=== PATIENT | female | born 1980 | race Hispanic/Latino ===

== ENCOUNTER 2018-10-15 02:15 | Emergency (ER) | payer OTHER ==
[2018-10-15] MEDS ORDERED: CODEINE 30MG/APAP 300MG TAB ONE (03:04)
[2018-10-15] MEDS ORDERED: CLINDAMYCIN HCL 150 MG CAP ONE (03:05)
--- NOTE | 2018-10-15 03:37 | ER ---
Nurse's Notes [facility] Name: Autumn Crisostomo Age: 38 yrs Sex: Female : 1980 Arrival Date: 10/15/2018 Time: 02:17 Bed 20 Private MD: Diagnosis: Jaw pain-Right lower Presentation: 10/15 02:34 Presenting complaint: Patient states: she has a broken tooth x approx 4 weeks which was bb hurting a little but now is hurting a lot and her face is swelling. Transition of care: patient was not received from another setting of care. Onset of symptoms was August 2018. Risk Assessment: Do you want to hurt yourself or someone else? Patient reports no desire to harm self or others. Initial Sepsis Screen: Does the patient meet any 2 criteria? No. Patient's initial sepsis screen is negative. Does the patient have a suspected source of infection? No. Patient's initial sepsis screen is negative. Care prior to arrival: None. 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 - Social history:: Smoking status: Patient/guardian denies using tobacco, Patient/guardian denies using alcohol, street drugs. - Ebola Screening: : No symptoms or risks identified at this time. Screenin:41 Abuse screen: Denies threats or abuse. Nutritional screening: No deficits noted. bb Tuberculosis screening: No symptoms or risk factors identified. Fall Risk None identified. Assessment: 02:41 General: Appears in no apparent distress. uncomfortable. Pain: Complains of pain in bb right jaw Pain currently is 8 out of 10 on a pain scale. Neuro: Level of Consciousness is awake, alert, obeys commands, Oriented to person, place, time, situation. Cardiovascular: No deficits noted. Respiratory: Respiratory effort is even, unlabored, Respiratory pattern is regular. GI: No deficits noted. No signs and/or symptoms were reported involving the gastrointestinal system. EENT: Reports pain in right jaw broken tooth. Musculoskeletal: Circulation, motion, and sensation intact. 03:37 Reassessment: Patient and/or family updated on plan of care and expected duration. Pain ea level reassessed. Patient is alert, oriented x 3, equal unlabored respirations, skin warm/dry/pink. Vital Signs: 02:36 BP 192 / 109; Pulse 85; Resp 16 S; Temp 97.7(O); Pulse Ox 97% on R/A; Weight 81.65 kg bb (R); Height 4 ft. 9 in. (144.78 cm) (R); Pain 8/10; 03:36 BP 194 / 103; Pulse 80; Resp 18; Pulse Ox 98% on R/A; ea 04:00 BP 189 / 100; Pulse 70; Resp 18; Pulse Ox 99% on R/A; ea 04:20 BP 167 / 99; Pulse 68; Resp 18; Pulse Ox 99% on R/A; Pain 5/10; ea 02:36 Body Mass Index 38.95 (81.65 kg, 144.78 cm) bb ED Course: 02:17 Patient arrived in ED. ag3 02:31 Chinmay Bucio PA is PHCP. cp 02:31 Chinmay Shell MD is Attending Physician. cp 02:35 Triage completed. bb 02:36 Arm band placed on Patient placed in an exam room, on a stretcher, on pulse oximetry. bb Family accompanied patient. 02:41 Patient has correct armband on for positive identification. Bed in low position. Call bb light in reach. Side rails up X 1. Adult w/ patient. Pulse ox on. NIBP on. 02:41 No provider procedures requiring assistance completed. Patient did not have IV access bb during this emergency room visit. 02:44 Sandrine Barahona, DANYELLE is Primary Nurse. ea 03:36 Abdelrahman Joel DDS is Referral Physician. cp Administered Medications: 02:59 Drug: Tylenol #3 (300 mg-30 mg) 2 tabs Route: PO; ea 03:38 Follow up: Response: No adverse reaction; Pain is unchanged, physician notified ea 02:59 Drug: Clindamycin 300 mg Route: PO; ea 03:39 Follow up: Response: No adverse reaction ea 03:38 Drug: morphine 4 mg Route: IM; Site: left deltoid; ea 04:20 Follow up: Response: No adverse reaction; Pain is decreased ea Outcome: 03:37 Discharge ordered by . noah 04:18 Condition: improved ea 04:18 Discharge instructions given to patient, Instructed on discharge instructions, follow up and referral plans. medication usage, Demonstrated understanding of instructions, follow-up care, medications. 04:22 Discharged to home ambulatory, with family. ea 04:22 Patient left the ED. ea Signatures: Melany Plascencia RN RN Chinmay Alatorre PA PA cp Antunez, Elena, RN RN ea Gomez, Alice ag3
--- NOTE | 2018-10-15 03:37 | EDPHYS ---
Physician Documentation [facility] Name: Autumn Crisostomo Age: 38 yrs Sex: Female : 1980 Arrival Date: 10/15/2018 Time: 02:17 Bed 20 Private MD: ED Physician Chinmay Shell HPI: 10/15 02:48 This 38 yrs old Female presents to ER via Ambulatory with complaints of cp Toothache. 02:48 The patient presents with broken tooth/teeth, pain, swelling. The problem is located in cp the right lower jaw. Onset: The symptoms/episode began/occurred 4 day(s) ago. Duration: The symptoms are continuous, and are steadily getting worse. Associated signs and symptoms: Pertinent positives: pain, swelling, facial, Pertinent negatives: dysphagia, fever. Severity of symptoms: in the emergency department the symptoms are unchanged, despite home interventions. 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 - Social history:: Smoking status: Patient/guardian denies using tobacco, Patient/guardian denies using alcohol, street drugs. - Ebola Screening: : No symptoms or risks identified at this time. ROS: 02:50 Constitutional: Negative for body aches, chills, fever, poor PO intake. cp 02:50 Eyes: Negative for injury, pain, redness, and discharge. cp 02:50 ENT: Positive for dental pain, right lower jaw pain, Negative for drainage from ear(s), ear pain, sinus pain, sore throat, difficulty swallowing, difficulty handling secretions. 02:50 Neck: Negative for pain with movement, pain at rest, stiffness, tenderness. 02:50 Cardiovascular: Negative for chest pain, palpitations. 02:50 Respiratory: Negative for cough, shortness of breath, wheezing. 02:50 Abdomen/GI: Negative for abdominal pain, nausea, vomiting, and diarrhea. 02:50 Skin: Negative for cellulitis, rash. 02:50 Neuro: Negative for dizziness, headache. 02:50 All other systems are negative. Exam: 02:55 Constitutional: The patient appears in no acute distress, alert, awake, non-toxic, well cp developed, well nourished. 02:55 Head/face: Noted is swelling, that is mild, of the right jaw, tenderness, that is cp mild, of the right jaw, Sinus tenderness, is not appreciated. 02:55 Eyes: Periorbital structures: appear normal, Conjunctiva: normal, no exudate, no injection, Sclera: no appreciated abnormality, Lids and lashes: appear normal, bilaterally. 02:55 ENT: External ear(s): are unremarkable, Ear canal(s): are normal, clear, TM's: bulging, is not appreciated, bilaterally, dullness, bilaterally, erythema, is not appreciated, bilaterally, Nose: is normal, Mouth: Lips: moist, Oral mucosa: pink and intact, moist, Gums: swollen, on the right lower gumline, Tongue: is normal, abscess, is not appreciated, Posterior pharynx: is normal, airway is patent, no erythema, no exudate, Dental exam: abscess, is not appreciated, dental caries, that is moderate, diffusely, fractured teeth are noted, specifically the lower right first molar (#30), pain, that is moderate, specifically in the lower right first molar (#30), Voice: is normal. 02:55 Neck: ROM/movement: is normal, is supple, without pain, no range of motions limitations, no meningismus, no nuchal rigidity, Lymph nodes: no appreciated lymphadenopathy. 02:55 Chest/axilla: Inspection: normal, Palpation: is normal, no crepitus, no tenderness. 02:55 Cardiovascular: Rate: normal, Rhythm: regular. 02:55 Respiratory: the patient does not display signs of respiratory distress, Respirations: normal, no use of accessory muscles, no retractions, no splinting, no tachypnea, labored breathing, is not present, Breath sounds: are clear throughout, no decreased breath sounds, no stridor, no wheezing. 02:55 Abdomen/GI: Exam negative for discomfort, distension, guarding, Inspection: abdomen appears normal. Vital Signs: 02:36 BP 192 / 109; Pulse 85; Resp 16 S; Temp 97.7(O); Pulse Ox 97% on R/A; Weight 81.65 kg bb (R); Height 4 ft. 9 in. (144.78 cm) (R); Pain 8/10; 03:36 BP 194 / 103; Pulse 80; Resp 18; Pulse Ox 98% on R/A; ea 04:00 BP 189 / 100; Pulse 70; Resp 18; Pulse Ox 99% on R/A; ea 04:20 BP 167 / 99; Pulse 68; Resp 18; Pulse Ox 99% on R/A; Pain 5/10; ea 02:36 Body Mass Index 38.95 (81.65 kg, 144.78 cm) bb MDM: 02:31 Patient medically screened. cp 02:50 Differential diagnosis: dental caries, dental abscess, pericoronitis. cp 03:35 Data reviewed: vital signs, nurses notes. cp 03:35 Counseling: I had a detailed discussion with the patient and/or guardian regarding: the cp historical points, exam findings, and any diagnostic results supporting the discharge/admit diagnosis, the presence of at least one elevated blood pressure reading (>120/80) during this emergency department visit, the need for outpatient follow up, a dentist, maxillary/facial surgeon, to return to the emergency department if symptoms worsen or persist or if there are any questions or concerns that arise at home. Response to treatment: the patient's symptoms have markedly improved after treatment, and as a result, I will discharge patient. 10/15 02:56 Order name: Vital Signs: recheck blood pressure; Complete Time: 03:38 cp Administered Medications: 02:59 Drug: Tylenol #3 (300 mg-30 mg) 2 tabs Route: PO; ea 03:38 Follow up: Response: No adverse reaction; Pain is unchanged, physician notified ea 02:59 Drug: Clindamycin 300 mg Route: PO; ea 03:39 Follow up: Response: No adverse reaction ea 03:38 Drug: morphine 4 mg Route: IM; Site: left deltoid; ea 04:20 Follow up: Response: No adverse reaction; Pain is decreased ea Disposition: 04:30 Chart complete. cp Disposition: 10/15/18 03:37 Discharged to Home. Impression: Jaw pain - Right lower. - Condition is Stable. - Discharge Instructions: Dental Pain. - Prescriptions for Clindamycin HCl 300 mg Oral Capsule - take 1 capsule by ORAL route every 6 hours for 10 days; 40 capsule. Tylenol- Codeine #3 300-30 mg Oral Tablet - take 2 tablets by ORAL route every 6 hours As needed; 15 tablet. - Medication Reconciliation Form, Thank You Letter, Antibiotic Education, Prescription Opioid Use form. - Follow up: Abdelrahman Joel DDS; When: 2 - 3 days; Reason: Recheck today's complaints. - Problem is new. - Symptoms have improved. Addendum: 10/25/2018 11:14 Co-signature as Attending Physician, Chinmay Shell MD I agree with the assessment and c santizo plan of care. Signatures: Chinmay Shell MD MD cha Ballard, Brenda, RN RN bb Chinmay Bucio PA PA cp Sandrine Barahona, RN RN ea Corrections: (The following items were deleted from the chart) 10/15 04:22 03:37 10/15/2018 03:37 Discharged to Home. Impression: Jaw pain - Right lower. ea Condition is Stable. Prescriptions for Clindamycin HCl 300 mg Oral Capsule - take 1 capsule by ORAL route every 6 hours for 10 days; 40 capsule, Tylenol-Codeine #3 300-30 mg Oral Tablet - take 2 tablets by ORAL route every 6 hours As needed; 15 tablet. and Forms are Medication Reconciliation Form, Thank You Letter, Antibiotic Education, Prescription Opioid Use. Follow up: Abdelrahman Joel; When: 2 - 3 days; Reason: Recheck today's complaints. Problem is new. Symptoms have improved. cp
[2018-10-15] MEDS ORDERED: MORPHINE 4 MG/ML SYR ONE (03:42)
[2018-10-15 05:08] VITALS: TEMP 97.7
[2018-10-15 05:11] VITALS: O2SAT 99
[2018-10-15 05:13] VITALS: BP 167/99
== END 2018-10-15 04:22 | disposition home or self-care (01) ==
LOC: ER 02:15
DX: K02.9 Dental caries, unspecified (principal); R68.84 Jaw pain; S02.5XXA Fracture of tooth (traumatic), initial encounter for closed fracture; X58.XXXA Exposure to other specified factors, initial encounter; I10 Essential (primary) hypertension; Z79.899 Other long term (current) drug therapy
CPT/HCPCS: 96372; 99283

== ENCOUNTER 2019-05-30 18:15 | Emergency (ER) | payer OTHER, SELFPAY ==
[2019-05-30] MEDS ORDERED: ONDANSETRON 4 MG/2 ML VIAL ONE (19:21)
[2019-05-30] MEDS ORDERED: MORPHINE 4 MG/ML SYR ONE (19:21)
--- NOTE | 2019-05-30 19:45 | RAD REPORT ---
EXAM DESCRIPTION: CT - Head Brain Wo Cont - 05/30/2019 7:30 pm CLINICAL HISTORY: Headache, left-sided facial pain COMPARISON: CT head February 2013 TECHNIQUE: Axial 5 mm thick images of the head were obtained without IV contrast. All CT scans are performed using dose optimization technique as appropriate and may include automated exposure control or mA/KV adjustment according to patient size. FINDINGS: No intracranial hemorrhage, mass, edema or shift of mid-line structures. No acute infarcti on changes seen. No abnormal extra-axial fluid collections. Ventricles are normal. Mastoid air cells and visualized portions of the paranasal sinuses are clear. No acute bony findings. IMPRESSION: Negative non-contrast CT head examination. No significant change from comparison.
[2019-05-30 19:52] LABS: Absolute Lymphocytes (CBC) 1.5 K/uL (0.7-4.9); Basophils % 0.3 % (0-1.3); Hematocrit 38.7 % (36.0-45.0); Lymphocytes % 15.9 % (15.3-44.8); MPV 8.1 fL (7.6-11.3); RBC Red Blood Cell Count 4.77 M/uL (3.86-4.86)
[2019-05-30 19:57] LABS: Protime INR 1.04
[2019-05-30 19:59] LABS: BUN Blood Urea Nitrogen 11 mg/dL (7-18); Bicarbonate 28 mmol/L (21-32); Glucose Level 131 mg/dL (74-106); Potassium 3.2 mmol/L (3.5-5.1); Sodium Level 132 mmol/L (136-145)
[2019-05-30] MEDS ORDERED: cloNIDine HCl 0.1 MG TAB ONE (20:00)
--- NOTE | 2019-05-30 20:38 | RAD REPORT ---
EXAM DESCRIPTION: CT - Head angio - 05/30/2019 8:27 pm CLINICAL HISTORY: Headache, hypertension TECHNIQUE: During dynamic enhancement using nonionic IV contrast, axial 1 millimeter thick images of the head were obtained. Sagittal and axial reconstruction images were generated using maximum intens ity projection protocol and reviewed. All CT scans are performed using dose optimization technique as appropriate and may include automated exposure control or mA/KV adjustment according to patient size. FINDINGS: No aneurysm or vascular malformation identified. Major venous sinuses are patent. No stenosis, named branch occlusion, vasculitis or other significant vascular finding identifiable. IMPRESSION: Negative CT angio head examination.
--- NOTE | 2019-05-30 20:39 | RAD REPORT ---
EXAM DESCRIPTION: CT - Neck Angio - 05/30/2019 8:22 pm CLINICAL HISTORY: Headache, neck and jaw pain, hypertension TECHNIQUE: During dynamic enhancement using nonionic IV contrast, axial 2 mm thick images of the nec k were obtained. Sagittal and axial reconstruction images were generated using maximum intensity proj ection protocol and reviewed. All CT scans are performed using dose optimization technique as appropriate and may include automated exposure control or mA/KV adjustment according to patient size. FINDINGS: No aneurysm or vascular malformation identified. No carotid or vertebral dissection. No aortic arch or great vessel origin abnormality seen. Vertebral artery origins unremarkable as well . No stenosis, vasculitis or other significant carotid artery finding. No focal abnormality of either vertebral artery. Basilar artery is normal. IMPRESSION: Negative CT angio neck examination.
--- NOTE | 2019-05-30 21:24 | ER ---
Nurse's Notes [facility] Name: Autumn Crisostomo Age: 39 yrs Sex: Female : 1980 Arrival Date: 05/30/2019 Time: 18:20 Bed 15 Private MD: Diagnosis: Atypical facial pain Presentation: 05/30 18:24 Presenting complaint: Patient states: around 1 pm today, i started having pain on my L hj ear and L side of the face, reports tooth extraction on the L upper area; reports N/V;denies weakness, no facial droop;. Transition of care: patient was not received from another setting of care. Onset of symptoms. Risk Assessment: Do you want to hurt yourself or someone else? Patient reports no desire to harm self or others. Initial Sepsis Screen: Does the patient meet any 2 criteria? No. Patient's initial sepsis screen is negative. Does the patient have a suspected source of infection? No. Patient's initial sepsis screen is negative. Care prior to arrival: None. 18:24 Method Of Arrival: Ambulatory 18:31 Acuity: NAHED 2 hj Historical: - Allergies: 18:26 No Known Allergies; hj - PMHx: 18:26 Hypertension; hj - PSHx: 18:26 ; hj - Family history:: not pertinent. - Hospitalizations: : No recent hospitalization is reported. Screenin:15 Abuse screen: Denies threats or abuse. Denies injuries from another. Nutritional aa1 screening: No deficits noted. Tuberculosis screening: No symptoms or risk factors identified. Fall Risk None identified. Assessment: 19:15 General: Appears in no apparent distress. uncomfortable, Behavior is calm, cooperative, aa1 appropriate for age. Pain: Complains of pain in left side of head Pain currently is 10 out of 10 on a pain scale. Is continuous. Neuro: Level of Consciousness is awake, alert, obeys commands, Oriented to person, place, time, situation, Moves all extremities. Full function Gait is steady, Speech is normal, Pupils are PERRLA, Reports headache. Cardiovascular: Heart tones S1 S2 present Rhythm is regular. Respiratory: Airway is patent Respiratory effort is even, unlabored, Respiratory pattern is regular, symmetrical. GI: Abdomen is non-distended, Reports nausea, vomiting. : No signs and/or symptoms were reported regarding the genitourinary system. EENT: No signs and/or symptoms were reported regarding the EENT system. Derm: Skin is intact, is healthy with good turgor, Skin is pink, warm \T\ dry. Musculoskeletal: Circulation, motion, and sensation intact. Capillary refill < 3 seconds. 20:35 Reassessment: Patient appears in no apparent distress at this time. Patient and/or aa1 family updated on plan of care and expected duration. Pain level reassessed. Patient is alert, oriented x 3, equal unlabored respirations, skin warm/dry/pink. Pt back from CT at this time; awaiting results Patient states symptoms have improved. 21:20 Reassessment: Patient appears in no apparent distress at this time. Patient and/or aa1 family updated on plan of care and expected duration. Pain level reassessed. Patient is alert, oriented x 3, equal unlabored respirations, skin warm/dry/pink. Dr. Diane at bedside for pt reassessment. 22:06 Reassessment: Patient appears in no apparent distress at this time. Patient is alert, aa1 oriented x 3, equal unlabored respirations, skin warm/dry/pink. Discussed d/c \T\ f/u instructions with pt \T\ family; denies questions or concerns at this time. Ambulates to lobby with steady gait. Vital Signs: 18:26 BP 210 / 125; Pulse 91; Resp 18; Temp 98.0(O); Pulse Ox 100% on R/A; Weight 81.65 kg; Height 4 ft. 9 in. (144.78 cm); Pain 10/10; 19:44 BP 179 / 111; Pulse 84; Resp 18; Pulse Ox 98% on R/A; aa1 20:35 BP 166 / 110; Pulse 79; Resp 18; Pulse Ox 99% on R/A; Pain 6/10; aa1 21:20 BP 154 / 106; Pulse 77; Resp 18; Pulse Ox 99% on R/A; Pain 6/10; aa1 22:06 BP 141 / 102; Pulse 75; Resp 16; Temp 98.3; Pulse Ox 100% on R/A; Pain 7/10; aa1 18:26 Body Mass Index 38.95 (81.65 kg, 144.78 cm) ED Course: 18:20 Patient arrived in ED. as 18:26 Triage completed. hj 18:26 Arm band placed on left wrist. hj 18:55 Papo Diane MD is Attending Physician. rn 19:13 Teresita Patel RN is Primary Nurse. aa1 19:15 Patient has correct armband on for positive identification. Placed in gown. Bed in low aa1 position. Call light in reach. Pulse ox on. NIBP on. Warm blanket given. 19:25 Initial lab(s) drawn, by me, sent to lab. Inserted saline lock: 20 gauge in right aa1 antecubital area, using aseptic technique. Blood collected. 19:35 CT Head Brain wo Cont In Process Unspecified. EDMS 19:51 Radiology exam delayed due to lab results not completed at this time. (BUN/Creatinine). nj 19:58 Radiology exam delayed due to lab results not completed at this time. (BUN/Creatinine). vm2 20:22 CT Neck Angio In Process Unspecified. EDMS 20:31 CT Head Angio In Process Unspecified. EDMS 22:06 No provider procedures requiring assistance completed. IV discontinued, intact, aa1 bleeding controlled, No redness/swelling at site. Pressure dressing applied. Administered Medications: 19:25 Drug: Zofran 4 mg Route: IVP; Site: right antecubital; aa1 20:25 Follow up: Response: No adverse reaction; Nausea is decreased aa1 19:27 Drug: morphine 4 mg Route: IVP; Site: right antecubital; aa1 20:27 Follow up: Response: No adverse reaction; Pain is decreased; RASS: Alert and Calm (0) aa1 20:00 Drug: cloNIDine 0.1 mg Route: PO; aa1 21:21 Follow up: Response: No adverse reaction; Blood pressure is lowered aa1 21:36 Drug: Decadron - Dexamethasone 10 mg Route: IVP; Site: right antecubital; aa1 22:09 Follow up: Response: No adverse reaction; Medication administered at discharge. aa1 21:36 Drug: [place] 10 mg-325 mg 1 tabs Route: PO; aa1 22:09 Follow up: Response: No adverse reaction; Medication administered at discharge.; RASS: aa1 Alert and Calm (0) Outcome: 21:24 Discharge ordered by . rn 22:06 Discharged to home ambulatory, with family. aa1 22:06 Condition: good 22:06 Discharge instructions given to patient, family, Instructed on discharge instructions, follow up and referral plans. medication usage, Demonstrated understanding of instructions, follow-up care, medications, Prescriptions given X 2. 22:13 Patient left the ED. aa1 Signatures: Dispatcher [employer] EDMS Genoveva Elliott RN RN aj1 Teresita Patel RN RN aa1 Lima King Roman, MD MD rn Joaquin, Henry, RN RN hj Jordan, Nathan nj McGuire, [facility] Corrections: (The following items were deleted from the chart) 18:29 18:24 Acuity: NAHED 4 [facility] 18:29 18:26 Pulse 91bpm; Resp 18bpm; Pulse Ox 100% RA; Temp 98.0F Oral; 81.65 kg; Height 4 hj ft. 9 in.; BMI: 38.9; Pain 10/10; hj 18:30 18:24 Acuity: NAHED 3 [facility] 18:32 18:31 Acuity: NAHED 2 [facility]
--- NOTE | 2019-05-30 21:24 | EDPHYS ---
Physician Documentation [facility] Name: Autumn Crisostomo Age: 39 yrs Sex: Female : 1980 Arrival Date: 05/30/2019 Time: 18:20 Bed 15 Private MD: ED Physician Papo Diane HPI: 05/30 19:27 This 39 yrs old Female presents to ER via Ambulatory with complaints of rn Vomiting, Ear Pain. 19:27 This 39 yrs old Female presents to ER via Ambulatory with complaints of facial rn pain. 19:27 The patient presents to the emergency department with nausea, vomiting. rn 19:27 The patient or guardian complains of pain. The symptoms are located left jaw. rn 19:28 Onset: The symptoms/episode began/occurred 6 hour(s) ago. Associated signs and rn symptoms: Pertinent positives: headache, Pertinent negatives: fever, bladder incontinence, bowel incontinence, numbness, tingling, weakness. The pain does not radiate. Modifying factors: The symptoms are alleviated by nothing. the symptoms are aggravated by movement, pressure. Severity of symptoms: At their worst the symptoms were moderate, in the emergency department the symptoms are unchanged. The patient has not experienced similar symptoms in the past. Reports left jaw/face pain and headache, began acutely around 6 hours ago, no trauma, no fever, had tooth extracted recently, no swelling, no sob or difficulty swallowing. Denies chest pain. NO focal neurological symptoms.. Historical: - Allergies: 18:26 No Known Allergies; hj - PMHx: 18:26 Hypertension; hj - PSHx: 18:26 ; hj - Family history:: not pertinent. - Hospitalizations: : No recent hospitalization is reported. ROS: 19:28 Constitutional: Negative for fever, chills, and weight loss, Eyes: Negative for injury, rn pain, redness, and discharge, ENT: Negative for injury, and discharge, Neck: + left neck and facial pain Cardiovascular: Negative for chest pain, palpitations, and edema, Respiratory: Negative for shortness of breath, cough, wheezing, and pleuritic chest pain, Abdomen/GI: Negative for abdominal pain, diarrhea, and constipation, MS/Extremity: Negative for injury and deformity, Skin: Negative for injury, rash, and discoloration, Neuro: Negative for numbness, tingling, and seizure. Exam: 19:28 Constitutional: This is a well developed, well nourished patient who is awake, alert, rn tearful, sitting upright Head/Face: Normocephalic, atraumatic. Eyes: Pupils equal round and reactive to light, extra-ocular motions intact. Lids and lashes normal. Conjunctiva and sclera are non-icteric and not injected. Cornea within normal limits. Periorbital areas with no swelling, redness, or edema. ENT: Nares patent. No nasal discharge, no septal abnormalities noted. Tympanic membranes are normal and external auditory canals are clear. Oropharynx with no redness, swelling, or masses, exudates, or evidence of obstruction, uvula midline. Mucous membranes moist. Neck: Trachea midline, no thyromegaly or masses palpated, and no cervical lymphadenopathy. Supple, full range of motion without nuchal rigidity, or vertebral point tenderness. No Meningismus. Cardiovascular: Regular rate and rhythm. No pulse deficits. Respiratory: No increased work of breathing, no retractions or nasal flaring. Abdomen/GI: soft, non-tender Skin: Warm, dry with normal turgor. Normal color with no rashes, no lesions, and no evidence of cellulitis. MS/ Extremity: Pulses equal, no cyanosis. Neurovascular intact. Full, normal range of motion. Equal circumference. Neuro: Awake and alert, GCS 15, oriented to person, place, time, and situation. Cranial nerves II-XII grossly intact. Motor strength 5/5 in all extremities. Sensory grossly intact. Cerebellar exam normal. 20:35 ECG was reviewed by the Attending Physician. rn Vital Signs: 18:26 BP 210 / 125; Pulse 91; Resp 18; Temp 98.0(O); Pulse Ox 100% on R/A; Weight 81.65 kg; hj Height 4 ft. 9 in. (144.78 cm); Pain 10/10; 19:44 BP 179 / 111; Pulse 84; Resp 18; Pulse Ox 98% on R/A; aa1 20:35 BP 166 / 110; Pulse 79; Resp 18; Pulse Ox 99% on R/A; Pain 6/10; aa1 21:20 BP 154 / 106; Pulse 77; Resp 18; Pulse Ox 99% on R/A; Pain 6/10; aa1 22:06 BP 141 / 102; Pulse 75; Resp 16; Temp 98.3; Pulse Ox 100% on R/A; Pain 7/10; aa1 18:26 Body Mass Index 38.95 (81.65 kg, 144.78 cm) hj MDM: 18:55 Patient medically screened. rn 21:21 Differential diagnosis: cervical strain, post extraction infection, LAD, abscess, nerve rn inflammation, pinched nerve. Data reviewed: vital signs, nurses notes, lab test result(s), EKG, radiologic studies, CT scan, and as a result, I will discharge patient. Counseling: I had a detailed discussion with the patient and/or guardian regarding: the historical points, exam findings, and any diagnostic results supporting the discharge/admit diagnosis, lab results, radiology results, the need for outpatient follow up, to return to the emergency department if symptoms worsen or persist or if there are any questions or concerns that arise at home. Response to treatment: the patient's symptoms have markedly improved after treatment, and as a result, I will discharge patient. Special discussion: I discussed with the patient/guardian in detail that at this point there is no indication for admission to the hospital. It is understood, however, that if the symptoms persist or worsen the patient needs to return immediately for re-evaluation. Based on the history and exam findings, there is no indication for further emergent testing or inpatient evaluation. I discussed with the patient/guardian the need to see the primary care provider for further evaluation of the symptoms. ED course: Patient improved, negative w/u including ct head/neck, neg ECG and trop, no palpable masses. states has had before once, and worked up at [facility], same side of face, told nerve problem. Will dc home with pain meds and steroids. NO vision changes, no signs of temporal arteritis. . 05/30 19:09 Order name: CBC with Diff; Complete Time: 20:42 rn 05/30 19:09 Order name: Basic Metabolic Panel; Complete Time: 20:42 rn 05/30 19:09 Order name: Protime (+inr); Complete Time: 20:42 rn 05/30 19:09 Order name: Ptt, Activated; Complete Time: 20:42 rn 05/30 19:09 Order name: Strep; Complete Time: 20:42 rn 05/30 19:09 Order name: [place] Screen Profile; Complete Time: 20:42 rn 05/30 19:09 Order name: CT Neck Angio; Complete Time: 20:42 rn 05/30 19:09 Order name: CT Head Brain wo Cont; Complete Time: 19:51 rn 05/30 19:09 Order name: CT Head Angio; Complete Time: 20:42 rn 05/30 19:28 Order name: Troponin (emerg Dept Use Only); Complete Time: 20:42 rn 05/30 20:28 Order name: Throat Culture EDMS 05/30 19:09 Order name: IV Start; Complete Time: 19:41 rn 05/30 19:28 Order name: EKG; Complete Time: 19:33 rn 08 19:28 Order name: EKG - Nurse/Tech; Complete Time: 20:32 rn EC:35 Rate is 75 beats/min. Rhythm is regular. QRS [place] is Normal. [place] interval is normal. QRS rn interval is normal. QT interval is normal. No Q waves. No ST changes noted. Clinical impression: LVH. Interpreted by me. Reviewed by me. Administered Medications: 19:25 Drug: Zofran 4 mg Route: IVP; Site: right antecubital; aa1 20:25 Follow up: Response: No adverse reaction; Nausea is decreased aa1 19:27 Drug: morphine 4 mg Route: IVP; Site: right antecubital; aa1 20:27 Follow up: Response: No adverse reaction; Pain is decreased; RASS: Alert and Calm (0) aa1 20:00 Drug: cloNIDine 0.1 mg Route: PO; aa1 21:21 Follow up: Response: No adverse reaction; Blood pressure is lowered aa1 21:36 Drug: Decadron - Dexamethasone 10 mg Route: IVP; Site: right antecubital; aa1 22:09 Follow up: Response: No adverse reaction; Medication administered at discharge. aa1 21:36 Drug: [place] 10 mg-325 mg 1 tabs Route: PO; aa1 22:09 Follow up: Response: No adverse reaction; Medication administered at discharge.; RASS: aa1 Alert and Calm (0) Disposition: 05/30/19 21:24 Discharged to Home. Impression: Atypical facial pain. - Condition is Stable. - Discharge Instructions: Pain Without a Known Cause. - Prescriptions for Tylenol- Codeine #3 300-30 mg Oral Tablet - take 1 tablet by ORAL route every 6 hours As needed; 20 tablet. Medrol ([place]) 4 mg Oral Tablets, Dose Pack - take 1 tablet by ORAL route as directed - follow package instructions; 1 packet. - Medication Reconciliation Form, Thank You Letter, Antibiotic Education, Prescription Opioid Use form. - Follow up: Private Physician; When: As needed; Reason: Recheck today's complaints, Re-evaluation by your physician. - Problem is new. - Symptoms have improved. Signatures: Dispatcher [employer] EDMS Teresita Patel RN RN aa1 Papo Diane MD MD rn Joaquin, Henry RN RN hj Corrections: (The following items were deleted from the chart) 21:23 21:21 ED course: Patient improved, negative w/u including ct head/neck, neg ECG and rn trop, no palpable masses. states has had before once, and worked up at [facility], same side of face, told nerve problem. Will dc home with pain meds and steroids. . rn 22:13 21:24 05/30/2019 21:24 Discharged to Home. Impression: Atypical facial pain. Condition aa1 is Stable. Forms are Medication Reconciliation Form, Thank You Letter, Antibiotic Education, Prescription Opioid Use. Follow up: Private Physician; When: As needed; Reason: Recheck today's complaints, Re-evaluation by your physician. Problem is new. Symptoms have improved. rn
[2019-05-30] MEDS ORDERED: dexAMETHasone 10 MG/ML VIAL ONE (21:34)
[2019-05-30] MEDS ORDERED: HYDROCODONE/APAP 10/325 TAB ONE (21:35)
[2019-05-30 22:33] VITALS: BP 141/102; TEMP 98.3; O2SAT 100
--- NOTE | 2019-05-31 07:10 | EKG ---
Test Date: 2019-05-30 Test Time: 20:07:02 [place] Consultant: JUSTIN MEASUREMENT RESULTS: Intervals: Rate: 75 WV: 144 QRSD: 78 QT: 408 QTc: 455 [place]: P: 35 WV: 144 QRS: 0 T: 7 INTERPRETIVE STATEMENTS: Normal sinus rhythm Voltage criteria for left ventricular hypertrophy Abnormal ECG Compared to ECG 04/26/2013 23:07:25 Left ventricular hypertrophy now present Electronically Signed On 05-31-19 07:10:07 CDT by Bernard Antonio
== END 2019-05-30 22:13 | disposition home or self-care (01) ==
LOC: ER 18:15
DX: G50.1 Atypical facial pain (principal); I10 Essential (primary) hypertension
CPT/HCPCS: 36415; 70450; 70496; 70498; 80048; 84484; 85025; 85610; 85730; 86308; 87070; 87081; 93005; 96374; 96375; 99284; J1100; J2405; Q9967

== ENCOUNTER 2024-02-21 09:39 | Emergency (ER) | payer SELFPAY ==
[2024-02-21] MEDS ORDERED: LIDOCAINE VISCOUS 2% 10ML ORAL SOLN ONE (10:23)
[2024-02-21] MEDS ORDERED: LIDOCAINE HCL JELLY 2% 6 ML SYRINGE TOP ONE (10:24)
[2024-02-21] MEDS ORDERED: ONDANSETRON 4 MG (ODT) TAB ONE (11:49)
--- NOTE | 2024-02-21 12:02 | ER ---
Nurse's Notes [facility] Name: Autumn Crisostomo Age: 43 yrs Sex: Female : 1980 Arrival Date: 02/21/2024 Time: 09:39 Bed 15 Private MD: Diagnosis: Foreign body in right ear-insect removed;Nausea with vomiting, unspecified;Essential (primary) hypertension Presentation: 02/20 09:48 Chief complaint: Patient states: was in the kitchen, felt something hit right ear , iw feels something moving inside her ear , happened about 30 min ago. Coronavirus screen: At this time, the client does not indicate any symptoms associated with coronavirus-19. Ebola Screen: Patient negative for fever greater than or equal to 101.5 degrees Fahrenheit, and additional compatible Ebola Virus Disease symptoms Patient denies exposure to infectious person. Patient denies travel to an Ebola-affected area in the 21 days before illness onset. No symptoms or risks identified at this time. Initial Sepsis Screen: Does the patient meet any 2 criteria? No. Patient's initial sepsis screen is negative. Does the patient have a suspected source of infection?. Risk Assessment: Do you want to hurt yourself or someone else? Patient reports no desire to harm self or others. Onset of symptoms was February 21, 2024. 09:48 Method Of Arrival: Ambulatory iw 09:48 Acuity: NAHED 4 iw Triage Assessment: 09:54 General: Appears in no apparent distress. comfortable, Behavior is calm, cooperative, ld1 appropriate for age. Pain: Denies pain. EENT: Ear canal w/ foreign body noted from right ear. Neuro: Level of Consciousness is awake, alert, obeys commands, Oriented to person, place, time, situation. Cardiovascular: Capillary refill < 3 seconds Patient's skin is warm and dry. Respiratory: Airway is patent Respiratory effort is even, unlabored. GI: Abdomen is flat, non-distended. : No signs and/or symptoms were reported regarding the genitourinary system. Derm: No signs and/or symptoms reported regarding the dermatologic system. Musculoskeletal: No signs and/or symptoms reported regarding the musculoskeletal system. Historical: - Allergies: 09:49 No Known Allergies; iw - PMHx: 09:49 Hypertension; iw - PSHx: 09:49 section; iw - Immunization history:: Adult Immunizations. - Infectious Disease History:: Denies. - Social history:: Smoking status: Patient denies any tobacco usage or history of. Screenin:56 [facility] ED Fall Risk Assessment (Adult) History of falling in the last 3 months, ld1 including since admission No falls in past 3 months (0 pts). Abuse screen: Denies threats or abuse. Denies injuries from another. Nutritional screening: No deficits noted. Tuberculosis screening: No symptoms or risk factors identified. Assessment: 09:56 Reassessment: See triage assessment. ld1 Vital Signs: 09:48 BP 192 / 115; Pulse 98; Resp 16; Temp 98.4; Pulse Ox 99% on R/A; Weight 86.18 kg; iw Height 4 ft. 9 in. ; 12:19 BP 165 / 110; Pulse 84; Resp 18; Pulse Ox 98% ; cp4 09:48 Body Mass Index 41.12 (86.18 kg, 144.78 cm) ED Course: 09:41 Patient arrived in ED. rg4 09:43 Chinmay Shell MD is Attending Physician. [facility] 09:49 Triage completed. iw 09:49 Arm band placed on. iw 09:54 Lexy Frank, DANYELLE is Primary Nurse. ld1 09:56 Patient has correct armband on for positive identification. Placed in gown. Bed in low ld1 position. Call light in reach. Side rails up X2. athletic monitor on. Pulse ox on. NIBP on. Door closed. Noise minimized. Warm blanket given. :56 No provider procedures requiring assistance completed. ld1 12:01 Sherlyn Mcfadden MD is Referral Physician. [facility] 12:18 Provided Education on: foreign body in ear. cp4 12:18 Patient did not have IV access during this emergency room visit. cp4 Administered Medications: 10:45 Drug: Viscous Lidocaine Mucous Membrane Liquid (4 %) 5 ml Mucous Membrane once; to cp4 bedside to right ear Route: Mucous Membrane; 12:19 Follow up: Response: No adverse reaction cp4 11:51 Drug: Ondansetron PO 8 mg PO once Route: PO; cp4 12:19 Follow up: Response: No adverse reaction cp4 Medication: 09:56 VIS not applicable for this client. ld1 Outcome: 12:01 Discharge ordered by . [facility] 12:18 Discharged to home ambulatory, cp4 12:18 Condition: stable 12:18 Discharge instructions given to patient, Instructed on discharge instructions, follow up and referral plans. medication usage, Demonstrated understanding of instructions, follow-up care, medications, Prescriptions given X 1, 12:21 Patient left the ED. cp4 Signatures: Chinmay Shell MD MD cha Williams, Irene, RN Alem Felix rg4 Lexy Frank RN RN ldKayy Morin cp4
--- NOTE | 2024-02-21 12:02 | EDPHYS ---
Physician Documentation [facility] Name: Autumn Crisostomo Age: 43 yrs Sex: Female : 1980 Arrival Date: 02/21/2024 Time: 09:39 Bed 15 Private MD: SHALINI Physician Chinmay Shell HPI: 02/20 10:20 This 43 yrs old Female presents to ER via Ambulatory with complaints of sachi Foreign Body In Ear. 10:20 The patient presents with a foreign body sensation, presumably from an insect. The sachi complaints affect the right ear. Onset: The symptoms/episode began/occurred just prior to arrival. Modifying factors: The symptoms are alleviated by nothing, the symptoms are aggravated by nothing. Associated signs and symptoms: The patient has no apparent associated signs or symptoms. Severity of symptoms: At their worst the symptoms were mild moderate. The patient has not experienced similar symptoms in the past. Historical: - Allergies: 09:49 No Known Allergies; iw - PMHx: 09:49 Hypertension; iw - PSHx: 09:49 section; iw - Immunization history:: Adult Immunizations. - Infectious Disease History:: Denies. - Social history:: Smoking status: Patient denies any tobacco usage or history of. ROS: 10:21 Constitutional: Negative for fever, chills, and weight loss, Eyes: Negative for injury, sachi pain, redness, and discharge, Neck: Negative for injury, pain, and swelling, Cardiovascular: Negative for chest pain, palpitations, and edema, Respiratory: Negative for shortness of breath, cough, wheezing, and pleuritic chest pain, Abdomen/GI: Negative for abdominal pain, nausea, vomiting, diarrhea, and constipation, Back: Negative for injury and pain, : Negative for injury, bleeding, discharge, and swelling, MS/Extremity: Negative for injury and deformity, Skin: Negative for injury, rash, and discoloration, Neuro: Negative for headache, weakness, numbness, tingling, and seizure, Psych: Negative for depression, anxiety, suicide ideation, homicidal ideation, and hallucinations, Allergy/Immunology: Negative for hives, rash, and allergies, Endocrine: Negative for neck swelling, polydipsia, polyuria, polyphagia, and marked weight changes, Hematologic/Lymphatic: Negative for swollen nodes, abnormal bleeding, and unusual bruising, 10:21 ENT: Positive for foreign body sensation, Exam: 10:21 Constitutional: This is a well developed, well nourished patient who is awake, alert, sachi and in no acute distress. Head/Face: Normocephalic, atraumatic. Eyes: Pupils equal round and reactive to light, extra-ocular motions intact. Lids and lashes normal. Conjunctiva and sclera are non-icteric and not injected. Cornea within normal limits. Periorbital areas with no swelling, redness, or edema. Neck: Trachea midline, no thyromegaly or masses palpated, and no cervical lymphadenopathy. Supple, full range of motion without nuchal rigidity, or vertebral point tenderness. No Meningismus. Chest/axilla: Normal chest wall appearance and motion. Nontender with no deformity. No lesions are appreciated. Cardiovascular: Regular rate and rhythm with a normal S1 and S2. No gallops, murmurs, or rubs. Normal PMI, no JVD. No pulse deficits. Respiratory: Lungs have equal breath sounds bilaterally, clear to auscultation and percussion. No rales, rhonchi or wheezes noted. No increased work of breathing, no retractions or nasal flaring. Abdomen/GI: Soft, non-tender, with normal bowel sounds. No distension or tympany. No guarding or rebound. No evidence of tenderness throughout. Back: No spinal tenderness. No costovertebral tenderness. Full range of motion. Skin: Warm, dry with normal turgor. Normal color with no rashes, no lesions, and no evidence of cellulitis. MS/ Extremity: Pulses equal, no cyanosis. Neurovascular intact. Full, normal range of motion. Neuro: Awake and alert, GCS 15, oriented to person, place, time, and situation. Cranial nerves II-XII grossly intact. Motor strength 5/5 in all extremities. Sensory grossly intact. Cerebellar exam normal. Normal gait. Psych: Awake, alert, with orientation to person, place and time. Behavior, mood, and affect are within normal limits. 10:21 ENT: Ear canal(s): foreign body, an insect, in the right external ear canal, Vital Signs: 09:48 BP 192 / 115; Pulse 98; Resp 16; Temp 98.4; Pulse Ox 99% on R/A; Weight 86.18 kg; iw Height 4 ft. 9 in. ; 12:19 BP 165 / 110; Pulse 84; Resp 18; Pulse Ox 98% ; cp4 09:48 Body Mass Index 41.12 (86.18 kg, 144.78 cm) iw Procedures: 10:30 Foreign Body Removal: an insect, from the right ear canal, by lidocaine lavage, normal sachi saline irrigation, Dressing: none, The patient tolerated the removal well. MDM: 09:43 Patient medically screened. sachi 10:23 Differential diagnosis: foreign body. Data reviewed: vital signs, nurses notes. sachi Consideration of Admission/Observation Escalation of care including admission/observation considered. I considered the following discharge prescriptions or medication management in the emergency department Medications were administered in the Emergency Department. See MAR. Historians other than the Patient: Family Member: family, well informed. Care significantly affected by the following chronic conditions: Hypertension, Obesity. 02/20 10:11 Order name: [facility]. Order: irrigate right ear; Complete Time: 11:39 sachi Administered Medications: 10:45 Drug: Viscous Lidocaine Mucous Membrane Liquid (4 %) 5 ml Mucous Membrane once; to cp4 bedside to right ear Route: Mucous Membrane; 12:19 Follow up: Response: No adverse reaction cp4 11:51 Drug: Ondansetron PO 8 mg PO once Route: PO; cp4 12:19 Follow up: Response: No adverse reaction cp4 Disposition Summary: 02/21/24 12:01 Discharge Ordered Notes: Location: Home sachi Problem: new sachi Symptoms: have improved sachi Condition: Stable sachi Diagnosis - Nausea with vomiting, unspecified sachi - Essential (primary) hypertension sachi - Foreign body in right ear - insect removed(02/21/24 12:05) sachi Followup: sachi - With: Private Physician - When: 2 - 3 days - Reason: Recheck today's complaints, Continuance of care, Re-evaluation by your physician Followup: sachi - With: Sherlyn Mcfadden MD - When: 2 - 3 days - Reason: Recheck today's complaints, Continuance of care, Re-evaluation by your physician Discharge Instructions: - Discharge Summary Sheet sachi - Ear Foreign Body sachi - Hypertension, Adult sachi - Nausea, Adult sachi - Nausea and Vomiting, Adult, [id number] sachi - Hypertension, Adult, [id number] sachi - Ear Foreign Body, [id number] sachi Forms: - Medication Reconciliation Form sachi - Antibiotic Education sachi - Prescription Opioid Use sachi - Patient Portal Instructions sachi - Leadership Thank You Letter sachi Prescriptions: - ondansetron 4 mg Oral Tablet,disintegrating - take 1 tablet ORAL route every 6-8 hours for 3 days; 12 tablet; Refills: 0, sachi Product Selection Permitted Signatures: Chinmay Shell MD MD cha Williams, Irene, RN RN Kayy Mar cp4 Corrections: (The following items were deleted from the chart) 12:05 12:01 Foreign body in right ear - insect sachi karimi
[2024-02-21 12:59] VITALS: BP 165/110; TEMP 98.4; O2SAT 98
== END 2024-02-21 12:21 | disposition home or self-care (01) ==
LOC: ER 09:39
PROC: 09C3XZZ Extirpation of Matter from Right External Auditory Canal, External Approach (ICD-10-PCS; principal; 2024-02-21)
DX: T16.1XXA Foreign body in right ear, initial encounter (principal)
CPT/HCPCS: 99284; Q0162

== ENCOUNTER 2024-12-01 11:16 | Emergency (ER) | payer SELFPAY ==
--- NOTE | 2024-12-01 11:31 | EDPHYS ---
Physician Documentation [facility] Name: Autumn Crisostomo Age: 44 yrs Sex: Female : 1980 Arrival Date: 12/01/2024 Time: 11:16 Bed IW1 Private MD: ED Physician Petr Stoll HPI: 12/01 11:33 This 44 yrs old Female presents to ER via Unassigned with complaints of Eye ec2 Swelling, itchy throat, Rash - on neck. 11:33 Patient arrives today due to concern for facial erythema which started yesterday. ec2 Reports that she had noticed some redness as well as some irritation to the skin, had taken Benadryl with minimal improvement in symptoms. Reports no fevers or chills, no nausea or vomiting, no allergies.. 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 - Infectious Disease History:: Denies. - Social history:: Smoking status: Patient denies any tobacco usage or history of. ROS: 11:33 Constitutional: as per hpi ec2 Exam: 11:33 Constitutional: GEN: NAD Head: atraumatic Eyes: EOMI Ears: External ears are ec2 normal. CV: regular rate LUNGS: no respiratory distress ABD: non-distended SKIN: Facial erythema and trace amount of swelling noted to the right maxillary area extending to the face and to the posterior neck. No wheals appreciated MSK: no evidence of trauma Vital Signs: 11:31 BP 180 / 124; Pulse 90; Resp 15; Temp 98.6; Pulse Ox 100% ; Weight 77.11 kg; Height 4 jl7 ft. 9 in. ; Pain 02/01; 11:31 Body Mass Index 36.79 (77.11 kg, 144.78 cm) jl7 11:31 Pain Scale: Adult jl7 11:31 Pt reports taking htn med 30 minutes ago, reports "My pressure is always high" jl7 MDM: 11:20 Medical Screening Exam initiated ec2 11:34 Data reviewed: vital signs, nurses notes. ED course: Patient arrives today for facial ec2 erythema. Examination is revealing for erythema as noted above. Possible allergic reaction however no obvious inciting factors, possible cellulitis, will empirically treat with prednisone as well as antibiotics. Will discharge home for return precautions given. Administered Medications: 11:40 Drug: Cephalexin PO 500 mg PO once Route: PO; 7 11:56 Follow up: Response: Medication administered at discharge. jl7 11:56 Drug: predniSONE PO 20 mg PO once Route: PO; jl7 11:56 Follow up: Response: Medication administered at discharge. jl7 Disposition Summary: 12/01/24 11:31 Discharge Ordered Notes: Location: Home ec2 Condition: Stable ec2 Diagnosis - Facial Erythema ec2 Followup: ec2 - With: Private Physician - When: - Reason: Re-evaluation by your physician Discharge Instructions: - Discharge Summary Sheet ec2 - Cellulitis, Adult, [id number] ec2 Forms: - Medication Reconciliation Form ec2 - Antibiotic Education ec2 - Prescription Opioid Use ec2 - Patient Portal Instructions ec2 - Leadership Thank You Letter ec2 Prescriptions: - Cephalexin 500 mg Oral capsule - take 1 capsule ORAL route every 8 hours for 5 days; 15 capsule; Refills: 0, ec2 Product Selection Permitted - Prednisone 20 mg Oral Tablet - take 1 tablet ORAL route once daily for 5 days; 5 tablet; Refills: 0, Product ec2 Selection Permitted Signatures: Reina Galindo RN RN jl7 Petr Stoll MD MD ec2
[2024-12-01] MEDS ORDERED: CEPHALEXIN 250 MG CAP ONE (11:39)
[2024-12-01] MEDS ORDERED: predniSONE 20 MG TAB ONE (11:39)
--- NOTE | 2024-12-01 11:59 | ER ---
Nurse's Notes [facility] Name: Autumn Crisostomo Age: 44 yrs Sex: Female : 1980 Arrival Date: 12/01/2024 Time: 11:16 Bed IW1 Private MD: Diagnosis: Facial Erythema Presentation: 12/01 11:31 Chief complaint: Patient states: Rash to face, itchy throat since yesterday. jl7 Coronavirus screen: At this time, the client does not indicate any symptoms associated with coronavirus-19. Ebola Screen: No symptoms or risks identified at this time. Initial Sepsis Screen: Does the patient meet any 2 criteria? No. Patient's initial sepsis screen is negative. Does the patient have a suspected source of infection? No. Patient's initial sepsis screen is negative. Risk Assessment: Do you want to hurt yourself or someone else? Patient reports no desire to harm self or others. Onset of symptoms was November 30, 2024. 11:31 Method Of Arrival: Ambulatory [facility] 11:31 Acuity: NAHED 4 jl7 Triage Assessment: 11:33 General: Appears in no apparent distress. uncomfortable, Behavior is calm, cooperative, jl7 appropriate for age. Pain: Complains of pain in face. Neuro: Level of Consciousness is awake, alert, obeys commands, Oriented to person, place, time, situation. Cardiovascular: Patient's skin is warm and dry. Respiratory: Airway is patent Respiratory effort is even, unlabored, Respiratory pattern is regular, symmetrical. Derm: Skin is pink, warm \\T\\ dry. 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 - Infectious Disease History:: Denies. - Social history:: Smoking status: Patient denies any tobacco usage or history of. Vital Signs: 11:31 BP 180 / 124; Pulse 90; Resp 15; Temp 98.6; Pulse Ox 100% ; Weight 77.11 kg; Height 4 jl7 ft. 9 in. ; Pain 4/10; 11:31 Body Mass Index 36.79 (77.11 kg, 144.78 cm) jl7 11:31 Pain Scale: Adult jl7 11:31 Pt reports taking htn med 30 minutes ago, reports "My pressure is always high" 7 ED Course: 11:19 Patient arrived in ED. im 11:19 Petr Stoll MD is Attending Physician. ec2 11:33 Triage completed. jl7 11:33 Arm band placed on right wrist. jl7 11:53 Reina Galindo, RN is Primary Nurse. jl7 11:57 No provider procedures requiring assistance completed. Patient did not have IV access jl7 during this emergency room visit. Administered Medications: 11:40 Drug: Cephalexin PO 500 mg PO once Route: PO; jl7 11:56 Follow up: Response: Medication administered at discharge. jl7 11:56 Drug: predniSONE PO 20 mg PO once Route: PO; jl7 11:56 Follow up: Response: Medication administered at discharge. 7 Outcome: 11:31 Discharge ordered by . ec2 11:57 Discharged to home ambulatory, jl7 11:57 Condition: stable 11:57 Discharge instructions given to patient, Instructed on discharge instructions, follow up and referral plans. medication usage, Demonstrated understanding of instructions, follow-up care, medications, Prescriptions given X 2, 11:58 Patient left the ED. 7 Signatures: Reina Galindo, RN RN jl7 Carol Heard Petr Stoll MD MD ec2
[2024-12-01 12:06] VITALS: BP 180/124; TEMP 98.6; O2SAT 100
== END 2024-12-01 11:58 | disposition home or self-care (01) ==
LOC: ER 11:16
DX: L53.8 Other specified erythematous conditions (principal); I10 Essential (primary) hypertension
CPT/HCPCS: 99283; J7512

== ENCOUNTER 2025-06-21 00:23 | Inpatient (IN) | payer SELFPAY ==
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
[2025-06-21] MEDS ORDERED: KETOROLAC 30 MG/ML INJ ONE (01:06)
[2025-06-21] MEDS ORDERED: ALBUTEROL 2.5 MG/3 ML NEB SOL ONE (01:06)
[2025-06-21] MEDS ORDERED: METHYLPREDNISOLONE 125 MG INJ ONE (01:06)
[2025-06-21] MEDS ORDERED: IPRATROPIUM BROM 0.5MG/2.5ML ONE (01:06)
[2025-06-21] MEDS ORDERED: NA CHLORIDE 0.9% 1,000 ML ONE ×3 (01:07→09:03)
[2025-06-21] MEDS ORDERED: HYDRALAZINE HCL 20 MG/ML VIAL ONE (01:07)
[2025-06-21 01:25] LABS: Absolute Lymphocytes (CBC) 3.2 K/uL (0.7-4.9); Hematocrit 34.3 % (36.0-45.0); Hemoglobin 10.6 g/dL (12.0-15.0); MCH 22.3 pg (27.0-35.0); MCHC 31.0 g/dL (32.0-36.0); MCV 72.1 fL (80-100); MPV 7.8 fL (7.6-11.3); Nucleated RBC Absolute Count 0.0 (0-0); Nucleated Red Blood Cells % 0.0 % (0-0); RBC Red Blood Cell Count 4.76 M/uL (3.86-4.86); White Blood Count 13.90 thou/uL (4.3-10.9)
[2025-06-21 01:29] LABS: D-Dimer 1.195 FEUug/mL (0-0.500); PT Prothrombin Time 13.2 SECONDS (10-13.0); Protime INR 1.17
[2025-06-21 01:51] LABS: ALT/SGPT 23 U/L (13-56); Albumin 2.7 g/dL (3.4-5.0); Albumin/Globulin Ratio 0.5 (1.1-1.8); Alkaline Phosphatase 101 U/L (45-117); Anion Gap 10.2 mEq/L (5.0-15.0); BUN Blood Urea Nitrogen 16 mg/dL (7-18); Globulin 5.1 g/dL (2.3-3.5); Glucose Level 313 mg/dL (74-106); Magnesium 1.5 mg/dL (1.6-2.4); NT PRO-BNP 104 pg/mL (<125); Potassium 3.2 mEq/L (3.5-5.1); Troponin High Sensitivity 11.5 pg/mL (<58.9)
[2025-06-21 01:52] LABS: AST/SGOT < 10 U/L (15-37); Bilirubin Indirect, Calculated 0.0 mg/dL (0.2-0.8)
--- NOTE | 2025-06-21 03:39 | RAD REPORT ---
EXAM: CT Angiography Chest With Intravenous Contrast CLINICAL HISTORY: CHEST PAIN TECHNIQUE: Axial computed tomographic angiography images of the chest with intravenous contrast. Sagittal and coronal reformatted images were created and reviewed. This CT exam was performed using one or more of the following dose reduction techniques: automated exposure control, adjustment of the mA a nd/or kV according to patient size, and/or use of iterative reconstruction technique. MIP reconstructed images were created and reviewed. COMPARISON: No relevant prior studies available. FINDINGS: Pulmonary arteries: Unremarkable. No pulmonary arterial filling defects. Aorta: No acute findings. No thoracic aortic aneurysm. Lungs and pleural spaces: Multifocal right lower lobe lobulated consolidative changes. There are un derlying nodular components ranging from 4 to 10 mm in size. No significant effusion. No pneumothorax. Heart: Unremarkable. No cardiomegaly. No significant pericardial effusion. No evidence of RV dysfunction. Mediastinum: Borderline prominent subcarinal and right hilar lymph nodes measuring up to 11 mm in s hort axis. Bones/joints: Minimal multilevel osteophytic lipping. No acute fracture. No dislocation. Soft tissues: Unremarkable. Lymph nodes: See above. Liver: The liver is enlarged. IMPRESSION: 1. No pulmonary embolic disease. 2. Right lower lobe infiltrates. There are underlying nodular components ranging from 4 to 10 mm in size. Findings may reflect atypical infection. Follow-up is recommended in order to ensure resolution and exclude malignancy. 3. Other findings as above. Electronically signed by: Cristino Wise MD 06/21/2025 02:48 AM CDT Due to temporary technical issues with the PACS/[employer] reporting system, reports are being carlos a d by the in-house radiologist without review as a courtesy to ensure prompt reporting the interpreting radiologist is fully responsible for the content of the report. Transcribed Date/Time: 06/21/2025 3:38 AM
[2025-06-21] MEDS ORDERED: AZITHROMYCIN 500 MG INJ IVPB ONE (04:55)
[2025-06-21] MEDS ORDERED: CEFTRIAXONE 1000 MG/VIAL ONE (04:55)
[2025-06-21] MEDS ORDERED: ACETAMINOPHEN 500 MG TAB ONE (04:56)
[2025-06-21] MEDS ORDERED: NA CHLORIDE 0.9% 250 ML ONE (04:56)
[2025-06-21] MEDS ORDERED: KCL 20 MEQ/100 mL IVPB 100 ML IV ONE (04:56)
--- NOTE | 2025-06-21 04:59 | EDPHYS ---
Physician Documentation [facility] Name: Autumn Crisostomo Age: 45 yrs Sex: Female : 1980 Arrival Date: 06/21/2025 Time: 00:23 Bed 4 Private MD: ED Physician Niko Mo HPI: 06/21 05:43 This 45 yrs old Female presents to ER via Ambulatory with complaints of Chest tw7 Pain, High Blood Pressure. 05:43 45-year-old female with a past medical history of hypertension presents to the ED today tw7 with complaints of chest pain, fever, shortness of breath, hypertension. Patient reports has been having the symptoms ongoing for 2 days. She reports her chest pain comes and goes and is worse with deep breaths. She also reports subjective fevers and chills at home but never took her temperature. She does report a mild cough. And she does report shortness of breath and dyspnea on exertion. Patient's daughter is at bedside and is an additional historian who reports that all of their family members including the kids have all been sick recently with fever and cough and grandma got it 2. Patient reports the chest pain is worse with deep breaths. Denies abdominal pain nausea vomiting.. 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 - Infectious Disease History:: Denies. - Social history:: Smoking status: Patient denies any tobacco usage or history of. ROS: 05:47 Eyes: Negative for injury, pain, redness, and discharge, ENT: Negative for injury, tw7 pain, and discharge, Neck: Negative for injury, pain, and swelling, 05:47 Abdomen/GI: Negative for abdominal pain, nausea, vomiting, diarrhea, and constipation, MS/Extremity: Negative for injury and deformity, Skin: Negative for injury, rash, and discoloration, 05:47 Constitutional: Positive for fatigue, fever, malaise, 05:47 Cardiovascular: Positive for chest pain, Negative for edema, orthopnea, palpitations, paroxysmal nocturnal dyspnea, 05:47 Respiratory: Positive for cough, with white sputum, shortness of breath, Negative for dyspnea on exertion, hemoptysis, orthopnea, Exam: 05:48 Abdomen/GI: Soft, non-tender, with normal bowel sounds. No distension or tympany. No tw7 guarding or rebound. No evidence of tenderness throughout. Negative Marshall's. Negative McBurney's 05:48 Constitutional: The patient appears in no acute distress, alert, awake, well developed, anxious, obese, 05:48 Cardiovascular: Rate: tachycardic, Rhythm: regular, Pulses: Heart sounds: normal, Edema: is not appreciated, JVD: is not appreciated, 05:48 Respiratory: Breath sounds: rhonchi, are heard in the right posterior middle lobe and right posterior lower lobe, 05:48 Respiratory: the patient does not display signs of respiratory distress, Respirations: normal, tachypnea, that is mild, 05:56 ECG was reviewed by the Attending Physician. tw7 Vital Signs: 00:29 BP 218 / 123; Pulse 120; Resp 20; Temp 99.4; Pulse Ox 100% ; Weight 54.43 kg; Height 4 vc1 ft. 9 in. ; Pain 7/10; 01:37 BP 164 / 96; Pulse 107; Resp 20; Pulse Ox 100% ; jj7 04:05 BP 158 / 106; Pulse 122; Resp 26; Pulse Ox 98% on R/A; lg3 05:16 BP 202 / 121; Pulse 119; Resp 18 S; Pulse Ox 99% on R/A; lg3 05:31 BP 150 / 103; Pulse 108; Resp 18; Pulse Ox 99% on R/A; kd3 06:52 BP 155 / 100; Pulse 115; Resp 18; Pulse Ox 98% on R/A; kd3 00:29 Body Mass Index 25.97 (54.43 kg, 144.78 cm) vc1 00:29 Pain Scale: Adult vc1 MDM: 00:40 Medical Screening Exam initiated tw7 05:50 Differential diagnosis: chest wall pain, Cholelithiasis costochondritis, esophagitis, tw7 gastritis, myocarditis, pancreatitis, pericarditis, pleurisy, pneumonia, pulmonary embolus, stable angina, thoracic aortic disection, unstable angina. HEART Score: History: Slightly Suspicious (0), ECG: Normal (0), Age: < or = 45 years (0), Risk Factors: 1 or 2 risk factors (1), Troponin: < or = 1 x Normal Limit (0), Total Score = 1. Data reviewed: vital signs. ED course: . 05:56 ED course: 45-year-old female presents today with plaints of chest pain, shortness of tw7 breath cough, subjective fever and chills, Shortness of breath. On exam patient is tachycardic here. Patient has rales in her right lower lobe. Patient is afebrile. Lab work performed shows patient has leukocytosis of 13. Anemia with a hemoglobin of 10.6. Troponin is negative. LFTs are normal. BNP is normal. Procalcitonin and lactic acid are normal. D-dimer is elevated so CTA chest was performed. CTA chest performed shows no evidence of pulmonary embolism but does show findings concerning for right lower lobe/atypical infection. Patient's presentation is consistent with right lower lobe pneumonia. Patient has persistent tachycardia despite IV fluid and pain medication. Patient will be admitted to the hospital for pneumonia. Blood culture sent. Patient given IV fluid. Patient given IV antibiotics. Patient has been admitted to the hospitalist service.. 08 00:39 Order name: Basic Metabolic Panel; Complete Time: 03:55 06/21 00:39 Order name: CBC with Diff; Complete Time: 03:55 06/21 00:39 Order name: D-Dimer; Complete Time: 03:55 06/21 00:39 Order name: LFT's; Complete Time: 03:55 06/21 00:39 Order name: Magnesium; Complete Time: 03:55 06/21 00:39 Order name: NT PRO-BNP; Complete Time: 03:55 06/21 00:39 Order name: PT-INR; Complete Time: 03:55 06/21 00:39 Order name: Troponin HS; Complete Time: 03:55 06/21 03:56 Order name: Blood Culture Adult (2) 06/21 03:56 Order name: Lactate w/ 2H reflex if indic.; Complete Time: 05:52 06/21 03:57 Order name: Procalcitonin; Complete Time: 05:52 tw7 06/21 04:33 Order name: Glucose, Ancillary Testing; Complete Time: 05:52 EDMS 06/21 05:20 Order name: CBC with Automated Diff EDMS 06/21 05:20 Order name: CBC with Automated Diff EDMS 06/21 05:20 Order name: Comprehensive Metabolic Panel EDMS 06/21 05:20 Order name: Comprehensive Metabolic Panel EDMS 06/21 08:06 Order name: CBC with Automated Diff EDMS 06/21 08:21 Order name: Hemoglobin A1c EDMS 06/21 08:29 Order name: Basic Metabolic Panel EDMS 06/21 08:29 Order name: Phosphorus EDMS 06/21 08:29 Order name: Magnesium EDMS 06/21 08:53 Order name: COVID-19 Ag + Flu A+B Ag ss 06/21 09:12 Order name: Troponin High Sensitivity EDMS 06/21 09:28 Order name: COVID-19 Ag + Flu A+B Ag EDMS 06/21 10:15 Order name: CBC Smear Scan EDMS 06/21 00:39 Order name: XRAY Chest (1 view); Complete Time: 05:52 tw06/21 00:55 Order name: CT Chest For PE Angio; Complete Time: 03:55 06/21 03:56 Order name: EKG; Complete Time: 03:57 06/21 00:39 Order name: Cardiac monitoring; Complete Time: 01:11 06/21 00:39 Order name: EKG - Nurse/Tech; Complete Time: 01:11 06/21 00:39 Order name: IV Saline Lock; Complete Time: 01:11 06/21 00:39 Order name: Labs collected and sent; Complete Time: 01:11 06/21 00:39 Order name: O2 Per Protocol; Complete Time: 01:11 06/21 00:39 Order name: O2 Sat Monitoring; Complete Time: 01:11 06/21 03:56 Order name: Accucheck; Complete Time: 04:15 06/21 03:56 Order name: IV Saline Lock - Large Bore; Complete Time: 04:15 06/21 03:56 Order name: Vital Signs; Complete Time: 04:15 EC:56 Rate is 111 beats/min. Rhythm is regular. QRS Cameron is Normal. IL interval is normal. tw7 QRS interval is normal. QT interval is normal. No Q waves. T waves are Normal. No ST changes noted. Clinical impression: Sinus tachycardia. Administered Medications: 01:11 Drug: hydrALAZINE IVP 5 mg IVP once Route: IVP; Site: right antecubital; jj7 04:15 Follow up: Response: No adverse reaction; No change in condition lg3 01:12 Drug: NS 0.9% IV 1000 ml IV at 1000 ml once; to be given as a bolus over 60 minutes jj7 Route: IV; Rate: 1000 ml; Site: right antecubital; 02:15 Follow up: Response: No adverse reaction; IV Status: Completed infusion; IV Intake: lg3 1000ml 01:12 Drug: Ketorolac IVP 30 mg IVP once Route: IVP; Site: right antecubital; jj7 02:15 Follow up: Response: No adverse reaction lg3 01:12 Drug: MethylPrednisoLONE IVP 125 mg IVP once Route: IVP; Site: right antecubital; jj7 02:15 Follow up: Response: No adverse reaction lg3 01:36 Drug: DuoNeb Nebulize (3:1) (2.5 mg - 0.5 mg) 3 ml Nebulizer once Route: Nebulizer; jj7 02:15 Follow up: Response: No adverse reaction lg3 05:15 Drug: NS 0.9% IV 1000 ml IV at 1000 ml once; to be given as a bolus over 60 minutes lg3 Route: IV; Rate: 1000 ml; Site: right antecubital; 05:15 Drug: cefTRIAXone 1 grams IV at calculated rate once Route: IV; Rate: calculated rate; lg3 Site: right antecubital; 05:15 Drug: AZITHromycin IVPB 500 mg IVPB once over 1 hrs; (mix in 250 mL NS) Route: IVPB; lg3 Infused Over: 1 hrs; Site: right antecubital; 06:27 Follow up: IV Status: Completed infusion kd3 05:15 Drug: Acetaminophen PO 1000 mg PO once Route: PO; lg3 05:56 Follow up: Response: Pain is decreased kd3 05:24 Drug: Labetalol IV 10 mg IV at calculated rate once Route: IV; Rate: calculated rate; kd3 Site: right antecubital; 05:56 Follow up: Response: Blood pressure is lowered; IV Status: Completed infusion kd3 06:27 Drug: Potassium Chloride IV 20 mEq IV at calculated rate once; administer over 1-2 kd3 hours Route: IV; Rate: calculated rate; Site: right antecubital; Disposition Summary: 06/21/25 04:59 Hospitalization Ordered Notes: Hospitalization Status: Inpatient Admission tw7 Provider: Anton Torres tw7 Condition: Stable tw7 Problem: new tw7 Symptoms: have improved tw7 Bed/Room Type: Standard tw7 Location: Telemetry/MedSurg (Inpatient)(06/21/25 11:01) Room Assignment: [facility](06/21/25 11:01) Diagnosis - Pneumonia, unspecified organism tw7 Forms: - Medication Reconciliation Form tw7 - SBAR form tw7 - Leadership Thank You Letter Signatures: Dispatcher [employer] EDMeredith Champion, DANYELLE BASSETT iw Manda Jane RN RN ss Able, Lacie, RN RN lg3 Aishwarya Irvin RN RN kd3 Ina Workman RN RN vc1 Jennifer Elliott RN RN jj7 Niko Mo MD MD tw7 Corrections: (The following items were deleted from the chart) 00:40 00:40 BASIC METABOLIC PANEL+C.LAB.BRZ ordered. EDTX EDTX 00:40 00:40 CBC+H.LAB.BRZ ordered. EDTX EDTX 00:40 00:40 D-DIMER+COAG.LAB.BRZ ordered. EDTX EDTX 00:40 00:40 HEPATIC FUNCTION+C.LAB.BRZ ordered. EDTX EDTX 00:40 00:40 MAGNESIUM+C.LAB.BRZ ordered. EDTX EDMS 00:40 00:40 PROBNP+C.LAB.BRZ ordered. EDTX EDTX 00:40 00:40 PROTIME (+INR)+COAG.LAB.BRZ ordered. EDTX EDMS 00:40 00:40 Troponin High Sensitivity+C.LAB.BRZ ordered. EDTX EDTX 00:40 00:40 Chest Single View+RAD.RAD.BRZ ordered. EDTX EDTX 09:13 04:59 Telemetry/MedSurg (Inpatient) tw7 iw 09:13 04:59 tw iw 11:01 09:13 BR ER HOLD iw ss 11:01 09:13 ERHOLD- iw ss
--- NOTE | 2025-06-21 04:59 | ER ---
Nurse's Notes [facility] Name: Autumn Crisostomo Age: 45 yrs Sex: Female : 1980 Arrival Date: 06/21/2025 Time: 00:23 Bed 4 Private MD: Diagnosis: Pneumonia, unspecified organism Presentation: 06/21 00:29 Chief complaint: Patient states: chest pain that started yesterday with high blood vc1 pressure pain in center of chest and radiates to left arm. Coronavirus screen: Client denies travel out of the [place] in the last 14 days. At this time, the client does not indicate any symptoms associated with coronavirus-19. Ebola Screen: Patient negative for fever greater than or equal to 101.5 degrees Fahrenheit, and additional compatible Ebola Virus Disease symptoms Patient denies exposure to infectious person. Patient denies travel to an Ebola-affected area in the 21 days before illness onset. No symptoms or risks identified at this time. Initial Sepsis Screen: Does the patient meet any 2 criteria? HR > 90 bpm. No. Patient's initial sepsis screen is negative. Does the patient have a suspected source of infection? No. Patient's initial sepsis screen is negative. Risk Assessment: Do you want to hurt yourself or someone else? Patient reports no desire to harm self or others. Onset of symptoms was July 20, 2025. Care prior to arrival: Medication(s) given: lisinopril 20mg. Activity prior to arrival: None. Mechanism of Injury: No Mechanism of Injury. Transition of care: patient was not received from another setting of care. 00:29 Method Of Arrival: Ambulatory vc1 00:29 Acuity: NAHED 3 vc1 Triage Assessment: 00:33 General: Appears in no apparent distress. uncomfortable, well groomed, well developed, vc1 well nourished, Behavior is calm, cooperative, appropriate for age. Pain: Complains of pain in anterior aspect of left upper chest and mid-sternal area Pain radiates to left arm Pain currently is 7 out of 10 on a pain scale. Quality of pain is described as sharp, Also complains of no other associated symptoms. EENT: No deficits noted. No signs and/or symptoms were reported regarding the EENT system. Neuro: Level of Consciousness is awake, alert, obeys commands, Oriented to person, place, time, situation, Appropriate for age. Cardiovascular: Heart tones S1 S2 present Capillary refill < 3 seconds Patient's skin is warm and dry. Respiratory: Airway is patent Respiratory effort is even, unlabored, Respiratory pattern is regular, symmetrical. GI: No deficits noted. No signs and/or symptoms were reported involving the gastrointestinal system. : No deficits noted. No signs and/or symptoms were reported regarding the genitourinary system. Derm: Skin is intact, is healthy with good turgor, Skin is dry, Skin is normal, Skin temperature is warm. Musculoskeletal: Circulation, motion, and sensation intact. Range of motion: intact in all extremities. 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 - Infectious Disease History:: Denies. - Social history:: Smoking status: Patient denies any tobacco usage or history of. Screenin:32 Abuse screen: Denies threats or abuse. Nutritional screening: No deficits noted. vc1 Tuberculosis screening: No symptoms or risk factors identified. 01:00 [facility] ED Fall Risk Assessment (Adult) History of falling in the last 3 months, jj7 including since admission No falls in past 3 months (0 pts) Confusion or Disorientation No (0 pts) Intoxicated or Sedated No (0 pts) Impaired Gait Yes (1 pt) Mobility Assist Device Used No (0 pt) Altered Elimination No (0 pt) Score/Fall Risk Level 0 - 2 = Low Risk Oriented to surroundings, Maintained a safe environment, Educated pt \T\ family on fall prevention, incl call for assistance when getting out of bed, Assessed \T\ reinforced patient's understanding of fall precautions. Assessment: 01:00 General: Appears in no apparent distress. comfortable, Behavior is calm, cooperative, jj7 appropriate for age. Pain: Complains of pain in chest Pain radiates to left arm. Neuro: No deficits noted. Cardiovascular: Reports chest pain, Denies nausea, palpitations, shortness of breath, vomiting. Respiratory: No deficits noted. Airway is patent Respiratory effort is even, unlabored, Respiratory pattern is regular, symmetrical. GI: No deficits noted. : No deficits noted. EENT: No deficits noted. Derm: No deficits noted. Musculoskeletal: No deficits noted. 04:15 Reassessment: Patient appears in no apparent distress at this time. No changes from lg3 previously documented assessment. Patient and/or family updated on plan of care and expected duration. Pain level reassessed. Patient is alert, oriented x 3, equal unlabored respirations, skin warm/dry/pink. 05:14 Pain: Complains of pain in head. lg3 Vital Signs: 00:29 BP 218 / 123; Pulse 120; Resp 20; Temp 99.4; Pulse Ox 100% ; Weight 54.43 kg; Height 4 vc1 ft. 9 in. ; Pain 7/10; 01:37 BP 164 / 96; Pulse 107; Resp 20; Pulse Ox 100% ; jj7 04:05 BP 158 / 106; Pulse 122; Resp 26; Pulse Ox 98% on R/A; lg3 05:16 BP 202 / 121; Pulse 119; Resp 18 S; Pulse Ox 99% on R/A; lg3 05:31 BP 150 / 103; Pulse 108; Resp 18; Pulse Ox 99% on R/A; kd3 06:52 BP 155 / 100; Pulse 115; Resp 18; Pulse Ox 98% on R/A; kd3 00:29 Body Mass Index 25.97 (54.43 kg, 144.78 cm) vc1 00:29 Pain Scale: Adult vc1 ED Course: 00:26 Patient arrived in ED. vc1 00:32 Triage completed. vc1 00:32 Arm band placed on right wrist. vc1 00:38 Niko Mo MD is Attending Physician. tw7 01:00 Patient has correct armband on for positive identification. Bed in low position. Call jj7 light in reach. Side rails up X 1. Provided Education on: use of call morfin. Warm blanket given. 01:00 Client placed on continuous cardiac and pulse oximetry monitoring. NIBP monitoring jj7 applied. environmental monitoring specialist on. Pulse ox on. NIBP on. 01:00 Inserted saline lock: 20 gauge in right antecubital area, using aseptic technique. jj7 Blood collected. Flushed with 10 mL NS. 01:11 Troponin HS Sent. jj7 01:11 PT-INR Sent. jj7 01:11 NT PRO-BNP Sent. jj7 01:11 Magnesium Sent. jj7 01:11 LFT's Sent. jj7 01:11 D-Dimer Sent. jj7 01:11 CBC with Diff Sent. jj7 01:11 Basic Metabolic Panel Sent. jj7 01:19 XRAY Chest (1 view) In Process Unspecified. EDMS 02:31 CT Chest For PE Angio In Process Unspecified. EDMS 04:14 Jennifer Elliott RN is Primary Nurse. jj7 04:59 Anton Torres MD is Hospitalizing Provider. tw7 Administered Medications: 01:11 Drug: hydrALAZINE IVP 5 mg IVP once Route: IVP; Site: right antecubital; jj7 04:15 Follow up: Response: No adverse reaction; No change in condition lg3 01:12 Drug: NS 0.9% IV 1000 ml IV at 1000 ml once; to be given as a bolus over 60 minutes jj7 Route: IV; Rate: 1000 ml; Site: right antecubital; 02:15 Follow up: Response: No adverse reaction; IV Status: Completed infusion; IV Intake: lg3 1000ml 01:12 Drug: Ketorolac IVP 30 mg IVP once Route: IVP; Site: right antecubital; jj7 02:15 Follow up: Response: No adverse reaction lg3 01:12 Drug: MethylPrednisoLONE IVP 125 mg IVP once Route: IVP; Site: right antecubital; jj7 02:15 Follow up: Response: No adverse reaction lg3 01:36 Drug: DuoNeb Nebulize (3:1) (2.5 mg - 0.5 mg) 3 ml Nebulizer once Route: Nebulizer; jj7 02:15 Follow up: Response: No adverse reaction lg3 05:15 Drug: NS 0.9% IV 1000 ml IV at 1000 ml once; to be given as a bolus over 60 minutes lg3 Route: IV; Rate: 1000 ml; Site: right antecubital; 05:15 Drug: cefTRIAXone 1 grams IV at calculated rate once Route: IV; Rate: calculated rate; lg3 Site: right antecubital; 05:15 Drug: AZITHromycin IVPB 500 mg IVPB once over 1 hrs; (mix in 250 mL NS) Route: IVPB; lg3 Infused Over: 1 hrs; Site: right antecubital; 06:27 Follow up: IV Status: Completed infusion kd3 05:15 Drug: Acetaminophen PO 1000 mg PO once Route: PO; lg3 05:56 Follow up: Response: Pain is decreased kd3 05:24 Drug: Labetalol IV 10 mg IV at calculated rate once Route: IV; Rate: calculated rate; kd3 Site: right antecubital; 05:56 Follow up: Response: Blood pressure is lowered; IV Status: Completed infusion kd3 06:27 Drug: Potassium Chloride IV 20 mEq IV at calculated rate once; administer over 1-2 kd3 hours Route: IV; Rate: calculated rate; Site: right antecubital; Medication: 01:00 VIS not applicable for this client. jj7 Intake: 02:15 IV: 1000ml; Total: 1000ml. lg3 Outcome: 04:59 Decision to Hospitalize by Provider. tw7 11:48 Patient left the ED. iw Signatures: Dispatcher [employer] EDMS Meredith Song RN RN iw Able, Lacie, RN RN lg3 Aishwarya Irvin RN RN kd3 Ina Workman RN RN vc1 Jennifer Elliott RN RN jjNiko Rojas MD MD tw7 Corrections: (The following items were deleted from the chart) 05:14 04:15 Reassessment: Patient appears in no apparent distress at this time. No changes lg3 from previously documented assessment. Patient and/or family updated on plan of care and expected duration. Pain level reassessed. Patient is alert, oriented x 3, equal unlabored respirations, skin warm/dry/pink. lg3
[2025-06-21] MEDS ORDERED: ALBUTEROL 2.5 MG/3 ML NEB SOL NEB PRN (05:16)
--- NOTE | 2025-06-21 05:16 | P.HP ---
Certification for Inpatient Patient admitted to: Inpatient With expected LOS: >2 Midnights Practitioner: I am a practitioner with admitting privileges, knowledge of patient current condition, hospital course, and medical plan of care. Services: Services provided to patient in accordance with Admission requirements found in Title 42 Section 412.3 of the Code of Federal Regulations Patient History Date of Service: 06/21/25 Reason for admission: Cough/shortness of breath History of Present Illness: 45-year-old female with no significant past medical history other than hyperten quin was brought to ER with shortness of breath and cough which has been going on for the last 2 to 3 days associated with fever and chills. Cough is productive with mucoid expectoration. Associated with some shortness of breath. Denies any nausea vomiting diarrhea. Family sick contacts , has had a grandson and son got sick last week with similar symptoms. Patient was assessed in the ER and was admitted for further management Allergies No Known Allergies Allergy (Unverified 12/07/12 21:08) Home medications list reviewed: Yes - Past Medical/Surgical History Past Medical History: Reviewed- Non-Contributory -: Hypertension Past Surgical History: Reviewed- Non-Contributory - Family History Family History: Reviewed- Non-Contributory - Social History Smoking Status: Never smoker Review of Systems 10-point ROS is otherwise unremarkable Other: Constitutional: Reports: generalized weakness. Skin: Denies: rash. Allergy/Immun: Denies: rhinorrhea, sneezing. Eyes: Denies: visual loss/blurred. ENT: Denies: earache, nasal congestion. Respiratory: Denies: non productive cough. Cardiovascular: Denies: chest pain, palpitations. GI: Denies: diarrhea, nausea. : Denies: dysuria. Musculoskeletal: Reports: arthritis. Denies: extremity pain. Heme: Denies: bleeding. Endocrine: Denies: polydipsia. Neuro: Reports: dizziness, gait problem, lightheaded, spinning sensation. Psych: Reports: anxiety. All systems rev & neg: except as noted Physical Examination - Vital Signs Temperature: 98.8 F Blood Pressure: 162/102 Pulse: 82 Respirations: 18 Pulse Ox (%): 94 - Physical Exam General: Alert, Oriented x3, Mild distress HEENT: Atraumatic, Normocephalic Neck: Supple, 2+ carotid pulse no bruit Respiratory: Clear to auscultation bilaterally, Normal air movement, Crackles/rales Cardiovascular: Regular rate/rhythm, Normal S1 S2 Capillary refill: <2 Seconds Gastrointestinal: Soft and benign, Non-distended, W/out hepatosplenomegaly Musculoskeletal: No clubbing, No swelling Integumentary: No rashes Neurological: Other (Alert awake nonfocal) Lymphatics: No axilla or inguinal lymphadenopathy - Studies Laboratory Data (last 24 hrs) 06/21/25 06/21/25 06/21/25 01:08 01:08 01:08 WBC 13.90 H Hgb 10.6 L Hct 34.3 L Plt Count 582 H PT 13.2 H INR 1.17 Sodium 132 L Potassium 3.2 L BUN 16 Creatinine 0.87 Glucose 313 H Magnesium 1.5 L Total Bilirubin 0.2 AST < 10 L ALT 23 Alkaline Phosphatase 101 Assessment and Plan - Plan Right lower lobe pneumonia CT findings noted Antitussives Started on IV antibiotic Will obtain cultures Will also get sputum cultures Monitor closely in the telemetry CT consistent with nodular features as well Need repeat CT as outpatient Follow-up with pulmonology as outpatient Hypertension Antihypertensives titrated Continue home medications and titrate as needed Hypokalemia Hyponatremia Dehydration Started on IV hydration Electrolytes monitor and replace accordingly GI/DVT prophylaxis Advanced directive full code Discharge Plan: Home Plan to discharge in: 48 Hours - Advance Directives Does patient have a Living Will: No Does patient have a Durable POA for Healthcare: No - Code Status/Comfort Care Code Status: Full Code Time Spent Managing Pts Care (In Minutes): 48
[2025-06-21] MEDS ORDERED: LABETALOL 20 MG/4ML SYRINGE IV ONE (05:18)
--- NOTE | 2025-06-21 05:34 | RAD REPORT ---
CLINICAL HISTORY: Chest pain. COMPARISON: None. TECHNIQUE: XR CHEST 1 VIEW 06/21/2025 12:39 AM CDT FINDINGS: The heart is mildly enlarged. Lungs are clear without consolidation, atelectasis, mass or edema. Ther e is no pleural effusion. There is no pneumothorax. There are no acute osseous findings. IMPRESSION: Clear lungs. Electronically signed by: Luis Carlos Carlos MD 06/21/2025 01:38 AM CDT RP Due to temporary technical issues with the PACS/[employer] reporting system, reports are being carlos a d by the in-house radiologist without review as a courtesy to ensure prompt reporting the interpreting radiologist is fully responsible for the content of the report. Transcribed Date/Time: 06/21/2025 5:33 AM
[2025-06-21] MEDS ORDERED: HYDRALAZINE HCL 20 MG/ML VIAL IV PRN (06:12)
[2025-06-21 08:05] LABS: Absolute Lymphocytes (CBC) 0.8 K/uL (0.7-4.9); Hematocrit 34.0 % (36.0-45.0); Hemoglobin 10.7 g/dL (12.0-15.0); MCH 22.7 pg (27.0-35.0); MCHC 31.5 g/dL (32.0-36.0); MCV 71.9 fL (80-100); MPV 7.7 fL (7.6-11.3); Nucleated RBC Absolute Count 0.0 (0-0); Nucleated Red Blood Cells % 0.0 % (0-0); RBC Red Blood Cell Count 4.73 M/uL (3.86-4.86); White Blood Count 13.20 thou/uL (4.3-10.9)
[2025-06-21] MEDS ORDERED: NIFEDIPINE XL 30 MG TABLET PO SCH (08:09)
[2025-06-21 08:27] LABS: Anion Gap 17.0 mEq/L (5.0-15.0); BUN Blood Urea Nitrogen 14.0 mg/dL (7-18); Magnesium 1.5 mg/dL (1.6-2.4); Potassium 4.0 mEq/L (3.5-5.1)
[2025-06-21 08:28] LABS: Glucose Level 434.0 mg/dL (74-106)
[2025-06-21] MEDS: NA CHLORIDE 0.9% 1,000 ML IV SCH (08:56)
[2025-06-21] MEDS ORDERED: ENOXAPARIN 40 MG/0.4 ML SQ ONE (09:04)
[2025-06-21] MEDS: NIFEDIPINE XL 30 MG TABLET PO SCH (09:14)
[2025-06-21] MEDS: ENOXAPARIN 40 MG/0.4 ML SQ SCH (09:15)
[2025-06-21 09:27] LABS: Influenza A Ag Negative; Influenza B Ag Negative; SARS-CoV-2 Antigen Rapid Res Negative (Negative)
[2025-06-21 09:34] VITALS: BMI 38.9
[2025-06-21 10:15] LABS: Anisocytosis 1+; Blood Morphology Comment NOTED (NOT SEEN); Microcytosis 1+; Polychromasia SLIGHT; White Blood Cell Scan OK (OK)
[2025-06-21] MEDS ORDERED: D10W 125 ML IV PRN ×2 (10:42→11:59)
[2025-06-21] MEDS ORDERED: GLUCAGON 1 MG/VIAL IM PRN ×2 (10:42→11:59)
[2025-06-21] MEDS: Magnesium Sulfate 2gm IVPB 2 G/50 ML BAG IV ONE (10:43)
[2025-06-21] MEDS ORDERED: INSULIN GLARGINE 100 UNIT/ML SQ ONE (11:22)
[2025-06-21] MEDS ORDERED: Magnesium Sulfate 2gm IVPB 2 G/50 ML BAG IV ONE (11:23)
[2025-06-21] MEDS: INSULIN GLARGINE 100 UNIT/ML SQ SCH (11:37)
[2025-06-21] MEDS: INSULIN REGULAR (HUMAN) 100 UNIT/ML SQ SCH (12:17)
[2025-06-21 12:45] LABS: Troponin High Sensitivity 8.8 pg/mL (<58.9)
[2025-06-21 12:46] LABS: Glucose Level 574.0 mg/dL (74-106)
[2025-06-21 16:15] LABS: Blood Gas Oxyhemoglobin 96.4 % (94.0-97.0); Blood O2 Saturation 97.2 % (92.0-98.5)
[2025-06-21 16:16] LABS: Arterial Blood Carboxyhemoglob 1.3 % (0.0-1.5); Blood Gas Inspired Oxygen 21.0 %
[2025-06-21 18:49] LABS: Sqamous Epithelial <5 /HPF (None Seen); Urine Culture Reflex Order NOT NEEDED; Urine Microscopic Reflex YN ORDER UMIC
[2025-06-22] MEDS: CEFTRIAXONE 1,000 MG in NA CHLORIDE 0.9% 50 ML IVPB SCH (04:55)
[2025-06-22 05:55] LABS: Absolute Lymphocytes (CBC) 2.7 K/uL (0.7-4.9); Hematocrit 29.7 % (36.0-45.0); Hemoglobin 9.8 g/dL (12.0-15.0); MCH 23.6 pg (27.0-35.0); MCHC 33.1 g/dL (32.0-36.0); MCV 71.3 fL (80-100); MPV 7.5 fL (7.6-11.3); Nucleated RBC Absolute Count 0.0 (0-0); Nucleated Red Blood Cells % 0.1 % (0-0); RBC Red Blood Cell Count 4.16 M/uL (3.86-4.86); White Blood Count 11.00 thou/uL (4.3-10.9)
[2025-06-22 06:12] LABS: ALT/SGPT 22 U/L (13-56); Albumin 2.6 g/dL (3.4-5.0); Albumin/Globulin Ratio 0.6 (1.1-1.8); Alkaline Phosphatase 89 U/L (45-117); Anion Gap 8.8 mEq/L (5.0-15.0); BUN Blood Urea Nitrogen 18 mg/dL (7-18); Globulin 4.6 g/dL (2.3-3.5); Glucose Level 336 mg/dL (74-106); Potassium 3.8 mEq/L (3.5-5.1)
[2025-06-22 06:19] LABS: AST/SGOT < 10 U/L (15-37)
[2025-06-22] MEDS: AZITHROMYCIN IV 500 MG in NA CHLORIDE 0.9% 250 ML IVPB SCH (06:20)
[2025-06-22] MEDS: ACETAMINOPHEN 325 MG TABLET PO PRN (06:59)
[2025-06-22] MEDS: INSULIN LISPRO 100 UNIT/1 ML SQ SCH (07:30)
[2025-06-22] MEDS: ONDANSETRON 4 MG/2 ML VIAL IV PRN (07:59)
[2025-06-22] MEDS: INSULIN GLARGINE 100 UNIT/ML SQ SCH (08:01)
[2025-06-22] MEDS ORDERED: SODIUM CHLORIDE 0.9% 10ML INJ IV PRN (09:01)
--- NOTE | 2025-06-22 09:01 | P.PN ---
Subjective Date of Service: 06/22/25 Chief Complaint: Cough/shortness of breath Subjective: Improving (Patient is still hyperglycemic. Complaining of LUQ, epigastric pain) Physical Examination - Vital Signs Temperature: 97.6 F Blood Pressure: 148/94 Pulse: 97 Respirations: 18 Pulse Ox (%): 99 - Physical Exam General: Cooperative, Acute distress, Obese HEENT: Atraumatic, Normocephalic Respiratory: Clear to auscultation bilaterally, Normal air movement Cardiovascular: No edema, Normal pulses, Regular rate/rhythm, Normal S1 S2 Gastrointestinal: Soft and benign, Non-distended, Tenderness Neurological: Normal speech Assessment And Plan - Plan Assessment Patient is a 45-year-old female with obesity and newly diagnosed diabetes mellitus. She presented to the ER with chest pain and shortness of breath. Pulmonary embolism was ruled out by CT angio, ACS by negative cardiac enzymes. She stayed in the hospital for uncontrolled hyperglycemia. She has A1c of 13.3. She has been started on scheduled insulin here. Severe sepsis Lactic acidosis Community-acquired PNA Abdominal pain Intractable nausea and vomiting New onset diabetes mellitus Obesity Hypertension Plan: NORMAL saline bolus for high lactate CT A/P unremarkable RLL PNA much improved on CT Continue empiric antibiotics for CAP Received Lantus 25 units this morning, and Premeal lispro 5 units Due to lack of insurance, will transition to insulin 70/30 BID upon discharge Adjust per insulin sliding scale Diabetes education Blood pressure control. Her lisinopril was increased to 30 mg daily Discharging in 1 day if above workup is negative
[2025-06-22] MEDS: PANTOPRAZOLE 40 MG INJ IVP SCH (09:32)
[2025-06-22] MEDS: POTASSIUM CL SA 10 MEQ TAB PO ONE (09:32)
--- NOTE | 2025-06-22 09:53 | RAD REPORT ---
EXAMINATION: CT ABDOMEN AND PELVIS WITH CONTRAST CLINICAL INDICATION: abdominal pain, N/V TECHNIQUE: CT abdomen and pelvis was performed, after the administration of IV contrast, as per [facility] protocol. Axial, sagittal and coronal reconstructions were obtained. One or more of the following dose reduction techniques were used: Automated exposure control, adjustment of the mA and k V according to patient size, and iterative reconstruction. Unless otherwise specified, incidental findings do not require dedicated imaging follow-up. COMPARISON: 06/21/2025 FINDINGS: LOWER CHEST: Moderate opacities in the right base posteriorly likely pneumonia. LIVER: Mild fatty liver is present. No focal lesion or biliary dilatation is seen. Grossly unremark able gallbladder. SPLEEN: Normal size. No focal lesion. PANCREAS: No mass, ductal dilation, or kirsten-pancreatic fluid. ADRENALS: Normal; no mass. KIDNEYS: Normal size and contour. No hydronephrosis. GASTROINTESTINAL TRACT: No evidence of free air, significant intra-abdominal free fluid, bowel obstru ction or abscess. Moderate stool is present throughout the colon. APPENDIX: Normal appendix. LYMPH NODES: No lymphadenopathy. MUSCULOSKELETAL: Mild multilevel spinal degenerative changes. IMPRESSION: Posterior right lung base opacities, perhaps fractionally improved since favored to represent infecti on/pneumonia. Follow-up imaging to document complete clearance suggested. Mild diffuse fatty liver. No acute intra-abdominal or pelvic finding.
[2025-06-22] MEDS ORDERED: ALBUTEROL 2.5 MG/3 ML NEB SOL NEB PRN (10:53)
[2025-06-22] MEDS ORDERED: D50W 25 GM/50 ML SYRINGE IV PRN (11:17)
[2025-06-22] MEDS ORDERED: GLUCAGON 1 MG/VIAL IM PRN (11:17)
[2025-06-22] MEDS: NA CHLORIDE 0.9% 500 ML IV ONE (11:19)
[2025-06-23] MEDS: IBUPROFEN 400 MG TAB PO ONE (06:21)
[2025-06-23 06:39] LABS: Anion Gap 11.4 mEq/L (5.0-15.0); BUN Blood Urea Nitrogen 13.0 mg/dL (7-18); Glucose Level 211.0 mg/dL (74-106); HDL Cholesterol 43.0 mg/dL (40-60); LDL Cholesterol,Calc NonReport 140.0; Potassium 3.4 mEq/L (3.5-5.1)
[2025-06-23 06:40] LABS: LDL Cholesterol, Calculated 140.0 mg/dL (<130)
[2025-06-23] MEDS: POTASSIUM CL SA 10 MEQ TAB PO ONE (08:37)
[2025-06-23] MEDS: INSULIN 70/30 100 UNITS/ML SQ SCH ×2 (10:12→16:50)
--- NOTE | 2025-06-23 11:39 | P.PN ---
Subjective Date of Service: 06/23/25 Chief Complaint: Right lower lobe pneumonia uncontrolled diabetes Subjective: Improving (Patient is improving had some headaches nausea vomiting yesterday is probably from the antibiotic new onset of diabetes) Review of Systems General: Weakness Gastrointestinal: Nausea Physical Examination - Vital Signs Temperature: 98.0 F Blood Pressure: 147/79 Pulse: 90 Respirations: 16 Pulse Ox (%): 96 - Physical Exam General: Alert, Oriented x3 Respiratory: Clear to auscultation bilaterally Cardiovascular: No edema, Regular rate/rhythm, Normal S1 S2 Assessment And Plan - Current Problems (Diagnosis) (1) Pneumonia Current Visit: Yes Status: Acute Plan: Patient is 45 years of age admitted with right lower lobe pneumonia changed to p.o. levofloxacin probably experiencing side effect of Zithromax causing nausea and abdominal discomfort which has been discontinued possible discharge a.m. Qualifiers: Laterality: right Lung location: lower lobe of lung (2) Diabetes Current Visit: Yes Status: Acute Plan: Patient admitted with new onset of diabetes started on insulin and metformin possible discharge tomorrow increase dose of insulin to 20 units twice a day also add simvastatin Qualifiers: Diabetes mellitus type: type 2 Diabetes mellitus complication status: without complication
[2025-06-23] MEDS: METFORMIN HCL 500 MG TAB PO SCH (16:49)
[2025-06-23] MEDS: ATORVASTATIN 10 MG TAB PO SCH (20:48)
[2025-06-23 21:47] VITALS: O2SAT 98
--- NOTE | 2025-06-24 09:28 | P.DS ---
Admission Date: 06/21/25 Discharge Date: 06/24/25 Disposition: ROUTINE DISCHARGE Discharge Condition: FAIR Reason for Admission: Right lower lobe pneumonia uncontrolled diabetes - Problems (1) Pneumonia Current Visit: Yes Status: Acute Qualifiers: Laterality: right Lung location: lower lobe of lung (2) Diabetes Current Visit: Yes Status: Acute Qualifiers: Diabetes mellitus type: type 2 Diabetes mellitus complication status: without complication Brief History of Present Illness: Patient is 45 years of age admitted with right lower lobe pneumonia and uncontrolled diabetes Hospital Course: Patient was admitted to the hospital patient had hyperlipidemia uncontrolled high blood pressure severely hyperglycemic new onset diagnosis of diabetes she does not follow-up with any primary care physicians patient was then started on insulin blood pressure was been elevated and more medications were actually started finally she was sent home on triple therapy including metformin insulin instructions were given patient is little nauseated hence the reason for her blood pressure being mildly elevated at the time of discharge daughter present a t the bedside alert oriented responsive cooperative chest clear Vital Signs/Physical Exam: Temp Pulse Resp BP Pulse Ox 98.5 F 96 H 20 172/110 H 97 06/24/25 04:00 06/24/25 09:10 06/24/25 04:00 06/24/25 09:10 06/24/25 04:00 Laboratory Data at Discharge: WBC 11.00 thou/uL (4.3-10.9) H 06/22/25 05:26 Hgb 9.8 g/dL (12.0-15.0) L D 06/22/25 05:26 Hct 29.7 % (36.0-45.0) L 06/22/25 05:26 Plt Count 603 thou/uL (152-406) H 06/22/25 05:26 PT 13.2 SECONDS (10-13.0) H 06/21/25 01:08 INR 1.17 06/21/25 01:08 Sodium 134 mEq/L (136-145) L 06/23/25 05:44 Potassium 3.4 mEq/L (3.5-5.1) L 06/23/25 05:44 BUN 13 mg/dL (7-18) 06/23/25 05:44 Creatinine 0.73 mg/dL (0.55-1.02) 06/23/25 05:44 Glucose 211 mg/dL (74-106) H 06/23/25 05:44 Phosphorus 3.4 mg/dL (2.5-4.9) 06/21/25 07:51 Magnesium 1.5 mg/dL (1.6-2.4) L 06/21/25 07:51 Total Bilirubin 0.3 mg/dL (0.2-1.0) 06/22/25 05:26 AST < 10 U/L (15-37) L 06/22/25 05:26 ALT 22 U/L (13-56) 06/22/25 05:26 Alkaline Phosphatase 89 U/L (45-117) 06/22/25 05:26 Triglycerides 210 mg/dL (<150) H 06/23/25 05:44 Cholesterol 225 mg/dL (<200) H 06/23/25 05:44 HDL Cholesterol 43 mg/dL (40-60) 06/23/25 05:44 Cholesterol/HDL Ratio 5.23 06/23/25 05:44 Lipase 83 U/L (13-75) H 06/22/25 09:30 Home Medications: lisinopriL [Lisinopril] 20 mg PO DAILY 06/21/25 Amlodipine [Norvasc*] 5 mg PO DAILY 30 Days #30 tab 06/24/25 Amox/Clavulanate [Augmentin 875-125 Tab] 875 mg PO BID 7 Days #14 tab 06/24/25 Atorvastatin Calcium [Lipitor*] 10 mg PO BEDTIME 30 Days #30 tab 06/24/25 Insulin 70/30 NPH/Reg Human [Novolin 70/30*] 20 unit SQ BIDAC 30 Days #1 vial 06/24/25 Metformin HCl [Glucophage*] 500 mg PO BIDWM 30 Days #60 tab 06/24/25 New Medications: Amox/Clavulanate [Augmentin 875-125 Tab] 875 mg PO BID 7 Days #14 tab Metformin HCl [Glucophage*] 500 mg PO BIDWM 30 Days #60 tab Atorvastatin Calcium [Lipitor*] 10 mg PO BEDTIME 30 Days #30 tab Amlodipine [Norvasc*] 5 mg PO DAILY 30 Days #30 tab Insulin 70/30 NPH/Reg Human [Novolin 70/30*] 20 unit SQ BIDAC 30 Days #1 vial Physician Discharge Instructions: Stop lisinopril and new lisinopril with hydrochlorothiazide has been sent due to high blood pressure also have sent medication for her cholesterol she also needs to take an [id number] baby aspirin insulin has also been sent to follow-up with [facility] primary care physician/an antibiotic has also been sent Diet: ADA Followup: NONE,NONE [Primary Care Provider] -
[2025-06-24] MEDS: AMLODIPINE 5 MG TAB PO ONE (10:16)
[2025-06-24] MEDS: HYDRALAZINE HCL 20 MG/ML VIAL IV PRN (12:37)
[2025-06-24] MEDS: SPIRONOLACTONE 25 MG TABLET PO SCH (14:24)
[2025-06-24 16:43] VITALS: BP 155/90; TEMP 97.4
== END 2025-06-24 16:10 | disposition home or self-care (01) | DRG 871 ==
LOC: ER 00:23 → ERHOLD 05:16 → 2ND 11:34
PROVIDERS: ADMIT Family Medicine; ATTEND Internal Medicine Sleep Medicine
PROC: 4A033R1 Measurement of Arterial Saturation, Peripheral, Percutaneous Approach (ICD-10-PCS; principal; 2025-06-21)
DX: A41.9 Sepsis, unspecified organism (principal); J18.9 Pneumonia, unspecified organism; E87.1 Hypo-osmolality and hyponatremia; E87.20 Acidosis, unspecified; R65.20 Severe sepsis without septic shock; E87.6 Hypokalemia; E86.0 Dehydration; E66.9 Obesity, unspecified; E11.65 Type 2 diabetes mellitus with hyperglycemia; I10 Essential (primary) hypertension; Z79.4 Long term (current) use of insulin; Z68.38 Body mass index [BMI] 38.0-38.9, adult; Z11.52 Encounter for screening for COVID-19; Z79.84 Long term (current) use of oral hypoglycemic drugs; Z28.310 Unvaccinated for COVID-19; Z79.899 Other long term (current) drug therapy
CPT/HCPCS: 36415; 36600; 71045; 71275; 74177; 80048; 80053; 80061; 80076; 81001; 82805; 82947; 83036; 83605; 83690; 83735; 83880; 84100; 84145; 84484; 85025; 85379; 85610; 87040; 87428; 93005; 93306; 94010; 94760; 96361; 96365; 96375; 99285; J0360; J0456; J0696; J1650; J1815; J2405; J2470; J2919; J3475; J3480; J7030; J7040; J7050; J7613; J7644; Q9967